=== PATIENT | female | born 1965 | race Caucasian/White ===

== ENCOUNTER 2020-07-01 16:09 | Emergency (ER) | payer OTHER, SELFPAY ==
--- NOTE | ~2020-07-01 | CT_ITS ---
EXAMINATION: CTA chest PE protocol DATE: 07/01/2020 19:44 INDICATION: Rest pain. Shortness of breath. TECHNIQUE: Computed tomography (CT) pulmonary angiogram of the chest was performed with 100 mL Omnipa que-350 intravenous contrast. Additional 3D reconstructions utilizing coronal maximum intensity proje ction (MIP) were performed. Automated exposure control and iterative reconstruction technique were em ployed. The dose-length product was 778.85 mGy-cm. COMPARISON: 08/05/11 FINDINGS: Excellent contrast opacification of the pulmonary arteries. There is mild streak artifact from dense contrast in the superior vena cava and right atrium. Mild scattered respiratory motion artifact which does not significantly limit evaluation. No pulmonary embolism. Calcified nodules in the left lung a long with calcified bilateral hilar and mediastinal lymph nodes consistent with old granulomatous dis ease. Unchanged 4 mm noncalcified granuloma in the right lower lobe. No pneumonia, pulmonary edema, p leural effusion or pneumothorax. Heart size is normal. No pericardial effusion. Thoracic aorta is nor mal in caliber with no dissection. Suggestion of possible esophageal wall thickening which could be s een with esophagitis. Calcified gallstone in the normal-appearing gallbladder. Visualized upper abdom en is otherwise unremarkable. Moderate thoracic spondylosis. Partially visualized anterior plate and screw fixation for lower cervical spinal fusion. Severe disc height loss at C7-T1 with 2 mm anterolis thesis C7 on T1. IMPRESSION: 1. No pulmonary embolism or other acute cardiopulmonary disease. 2. Suggestion of wall thickening in the mid to distal esophagus which could be seen with esophagitis. Reviewed, dictated and finalized at location A.
--- NOTE | ~2020-07-01 | XR_ITS ---
EXAMINATION: XR chest 2V DATE: 07/01/2020 19:18 INDICATION: Chest pain TECHNIQUE: frontal and lateral views of the chest were obtained. COMPARISON: Chest radiograph dated 12/19/2012 FINDINGS: A few calcified nodules in the left lung and calcified left hilar and mediastinal lymph nodes consist ent with old granulomatous disease. No other airspace opacities, pulmonary edema, pleural effusion or pneumothorax. The cardiomediastinal silhouette is normal. Instrumented anterior cervical spinal fusi on in the mid to lower cervical spine. A couple surgical clips along the right side of the lower cerv ical spine. Moderate thoracic spondylosis. IMPRESSION: 1. No acute cardiopulmonary disease. Reviewed, dictated and finalized at location A.
[2020-07-01 16:42] VITALS: BP 138/82; PULSE 85; RESP 20; TEMP 36.2; O2SAT 100
--- NOTE | 2020-07-01 16:46 | ECG_ITS ---
Measurements Intervals Gideon Rate: 82 P: 7 AR: 188 QRS: 0 QRSD: 82 T: 38 QT: 365 QTc: 428 Interpretive Statements SINUS RHYTHM BORDERLINE R WAVE PROGRESSION, ANTERIOR LEADS BASELINE WANDER- V4 BORDERLINE ECG Electronically Signed On 07-01-2020 19:25:24 CDT by Antonio Burnette D.O.
[2020-07-01 16:55] LABS: Basophils Percent Auto 0.5 % (0.2-1.2); Eosinophils Absolute Auto 0.5 K/mm3 (0-0.3); Eosinophils Percent Auto 8.3 % (0-4.4); Hematocrit 39.7 % (37.0-47.0); Hemoglobin 13.3 g/dL (12.0-15.0); Immature Granulocyte Absolute 0.01 K/mm3 (0.00-0.031); Immature Granulocyte Percent A 0.2 % (0-0.5); Lymphocytes Absolute Auto 1.95 K/mm3 (0.9-3.2); Lymphocytes Percent Auto 32.6 % (18.3-44.2); Mean Corpuscular HGB Conc 33.5 g/dl (32-36); Mean Corpuscular Hemoglobin 30.6 pg (26-34); Mean Corpuscular Volume 91.3 fl (80-100); Mean Platelet Volume 10.1 fl (7.4-10.4); Monocytes Absolute Auto 0.7 K/mm3 (0.1-0.6); Monocytes Percent Auto 11.4 % (2.6-8.5); Neutrophils Absolute Auto 2.8 K/mm3 (1.3-6.7); Platelet Count Result 312 k/mm3 (150-375); Red Blood Count 4.35 M/mm3 (4.2-5.4); Red Cell Distribution Width 11.9 % (11.5-14.5)
[2020-07-01 17:06] LABS: Anion Gap 7 mmol/L (8-16); Blood Urea Nitrogen 17 mg/dL (7-17); Carbon Dioxide 30 mmol/L (22-30); Chloride 106 mmol/L (98-107); Estimated CRCL calculation 57 ml/min; Estimated Glomerular Filt Rate 57; Glucose 92 mg/dL (65-105); Potassium 4.4 mmol/L (3.4-5.0); Sodium 143 mmol/L (137-145)
[2020-07-01 17:11] LABS: INR 0.9; Prothrombin Time 12.3 Seconds (11.1-14.7)
[2020-07-01 17:12] LABS: Partial Thromboplastin Time 28.9 SECONDS (22.3-36.8)
[2020-07-01 17:18] LABS: Troponin I < 0.012 ng/mL (0.000-0.034)
--- NOTE | 2020-07-01 19:00 | PC.NURSE ---
PT REPORT TO ZANE MATSON AT THIS TIME, SHE HAS ASSUMED PT CARE.
[2020-07-01 19:04] VITALS: PULSE 85
[2020-07-01 19:05] VITALS: BP 130/81; PULSE 87; RESP 22; O2SAT 97; O2SAT 98
[2020-07-01 19:10] VITALS: BP 130/81; PULSE 83; RESP 19; O2SAT 97
--- NOTE | 2020-07-01 19:30 | ED.CHESTPAIN ---
HPI - Chest Pain General Chief Complaint: Chest Pain Stated Complaint: chest pain Time Seen by Provider: 07/01/20 18:51 History of Present Illness HPI narrative: Patient is a 55-year-old female who presents ER with central chest pain. Ongoing for 2 weeks. Sharp and central but also feels like bricks sitting on her chest. It worsens with any type of movement and with direct palpation. She reports she did strike her chest a couple weeks ago but did not think much of it. She reports 1 week ago she was at [facility] and had a CT scan of her chest that was negative. However she reports that she went to her primary care physician today and he told her that the report showed she had a pulmonary embolism. He then referred her here for further treatment evaluation. Patient reports mild exertional shortness of breath. No fevers or chills or sweats. No productive cough. No hemoptysis. No previous PE/DVT. Related Data Allergies Allergy/AdvReac Type Severity Reaction Status Date / Time Sulfa (Sulfonamide Allergy Unknown Verified 02/23/16 16:54 Antibiotics) Review of Systems Review of Systems: All systems reviewed & are unremarkable except as noted in HPI and below Constitutional: Constitutional: Denies chills, Denies fever(s) and Denies weakness Cardiovascular: Cardiovascular: Reports chest pain, Denies rapid heart rate and Denies radiating jaw, neck or arm pain Respiratory: Respiratory: Denies cough, Reports dyspnea and Denies wheezing Gastrointestinal: Gastrointestinal: Denies abdominal pain, Denies diarrhea, Denies nausea and Denies vomiting PMFSH Past Medical History Medical History (Updated 07/01/20 @ 20:28 by Venu Carrion MD) Anxiety Depression Surgical History Surgical History (Updated 07/01/20 @ 19:32 by Venu Carrion MD) H/O neck surgery History of back surgery History of carpal tunnel surgery Family History Family History (Updated 05/30/14 @ 07:13 by DOCTOR UNKNOWN) Mother Carcinoma of colon Social History Social History (Updated 07/01/20 @ 19:33 by Venu Carrion MD) Smoking status: Never smoker Alcohol intake: never Substance use type: marijuana Exam Narrative: Exam Narrative: GENERAL: Well-appearing, well-nourished, and in no acute distress. HEAD: Normocephalic, atraumatic. CHEST: Clear to auscultation. No respiratory distress. Tender palpation anterior chest wall with light palpation. No bruising. HEART: Regular rate and rhythm. Normal peripheral pulses. ABDOMEN: Soft, nontender, nondistended. EXTREMITIES: Normal range of motion. No edema. SKIN: Warm, dry, no rash. NEURO: Alert and oriented x3. PSYCH: Normal mood and affect. Course Course Emergency Course: Pain improved with morphine. Informed results. Discharge home. Will give GI cocktail and discharged with PPI as well. Vital Signs Vital signs: Vital Signs Temperature 97.1 F L 07/01/20 16:42 Pulse Rate 85 07/01/20 16:42 Respiratory Rate 20 07/01/20 16:42 Blood Pressure 138/82 07/01/20 16:42 Pulse Oximetry 100 07/01/20 16:42 Temperature 97.1 F L 07/01/20 16:42 Pulse Rate 87 07/01/20 19:05 Respiratory Rate 22 H 07/01/20 19:05 Blood Pressure 130/81 07/01/20 19:05 Pulse Oximetry 98 07/01/20 19:05 MDM - Chest Pain Lab Data Result diagrams: 07/01/20 16:48 07/01/20 16:48 Labs: Lab Results 07/01/20 07/01/20 07/01/20 Range/Units 16:48 16:48 16:48 WBC 6.0 (4.5-10.0) K/mm3 RBC 4.35 (4.2-5.4) M/mm3 Hgb 13.3 (12.0-15.0) g/dL Hct 39.7 (37.0-47.0) % MCV 91.3 (80-100) fl MCH 30.6 (26-34) pg MCHC 33.5 (32-36) g/dl RDW 11.9 (11.5-14.5) % Plt Count 312 (150-375) k/mm3 MPV 10.1 (7.4-10.4) fl Immature Gran % (Auto) 0.2 (0-0.5) % Neut % (Auto) 47.0 (45.5-73.1) % Lymph % (Auto) 32.6 (18.3-44.2) % [place] % (Auto) 11.4 H (2.6-8.5) % Eos % (Auto) 8.3 H (0-4.4)
[2020-07-01] MEDS: ASPIRIN 81 MG CHEWABLE TABLET 324 MG PO (19:50)
[2020-07-01] MEDS: MORPHINE SULFATE (*CRX) 4 MG/ML INJ IV PUSH (19:50)
[2020-07-01 20:01] LABS: Troponin I < 0.012 ng/mL (0.000-0.034)
[2020-07-01] MEDS: BELLADONNA ALK/PHENOB ELIX 10 ML, MAG HYDROX/ALUMINUM HYD/SIMETH 30 ML, LIDOCAINE HCL 2... PO (20:30)
[2020-07-01 20:45] VITALS: BP 147/88; PULSE 76; RESP 17; O2SAT 98
== END 2020-07-01 20:45 | disposition home or self-care (01) ==
PROVIDERS: Emergency Medicine; Emergency Provider Emergency Medicine; PCP Emergency Medicine
DX: R07.89 Other chest pain (principal); K20.9 Esophagitis, unspecified; R94.31 Abnormal electrocardiogram [ECG] [EKG]
CPT/HCPCS: 36415; 71046; 71275; 80048; 84484; 85025; 85610; 85730; 93005; 96374; 99284; A9270; J2270; Q9967

== ENCOUNTER 2022-04-12 15:53 | Emergency (ER) | payer OTHER, SELFPAY ==
--- NOTE | ~2022-04-12 | XR_ITS ---
XR chest 1V portable DATE: 04/12/2022 16:52 INDICATION: Chest, heat exhaustion, dizziness TECHNIQUE: Portable AP chest COMPARISON: 07/01/2020 CT pulmonary scan 07/01/2020 AP and lateral chest FINDINGS: Left upper and lower lobe calcified pulmonary granulomas, calcified left hilar and aortopul monary window nodes, consistent with old granulomatous disease.. No pulmonary infiltrate or consolidation, pleural effusion or pulmonary vascular congestion or pneumo thorax. Normal heart size. No hilar or mediastinal enlargement. No pulmonary infiltrate or consolidation, pleural effusion or pulmonary vascular congestion or pneumo thorax. Degenerative spurring of the thoracic spine. Status post anterior cervical spine surgical fusion. Cli ps overlie the right cervical area. Osteopenia. IMPRESSION: Old pulmonary granulomatous disease No active cardiopulmonary disease Reviewed, dictated and finalized at location A.
[2022-04-12 15:55] VITALS: BP 149/90; PULSE 110; RESP 16; TEMP 36.9; O2SAT 98
--- NOTE | 2022-04-12 16:53 | PC.NURSE ---
pt refusing iv fluids. states im not sick like that .
[2022-04-12 16:58] LABS: Basophils Percent Auto 0.6 % (0.2-1.2); Eosinophils Absolute Auto 0.3 K/mm3 (0-0.3); Eosinophils Percent Auto 4.1 % (0-4.4); Hematocrit 42.7 % (37.0-47.0); Hemoglobin 14.2 g/dL (12.0-15.0); Immature Granulocyte Absolute 0.01 K/mm3 (0.00-0.031); Immature Granulocyte Percent A 0.1 % (0-0.5); Lymphocytes Percent Auto 24.1 % (18.3-44.2); Mean Corpuscular HGB Conc 33.3 g/dl (32-36); Mean Corpuscular Hemoglobin 29.4 pg (26-34); Mean Corpuscular Volume 88.4 fl (80-100); Mean Platelet Volume 10.4 fl (7.4-10.4); Monocytes Absolute Auto 0.6 K/mm3 (0.1-0.6); Monocytes Percent Auto 8.9 % (2.6-8.5); Neutrophils Absolute Auto 4.4 K/mm3 (1.3-6.7); Neutrophils Percent Auto 62.2 % (45.5-73.1); Platelet Count Result 309 k/mm3 (150-375); Red Blood Count 4.83 M/mm3 (4.2-5.4); Red Cell Distribution Width 12.7 % (11.5-14.5); White Blood Count 7.1 K/mm3 (4.5-10.0)
[2022-04-12 17:10] LABS: Creatine Kinase 184 U/L (30-135)
[2022-04-12 17:11] LABS: INR 1.1; Prothrombin Time 13.5 Seconds (11.1-14.7)
[2022-04-12 17:12] LABS: Partial Thromboplastin Time 30.3 SECONDS (22.3-36.8)
[2022-04-12 17:16] LABS: Alanine Aminotransferase 27 U/L (6-35); Albumin Level 4.4 g/dL (3.5-5.1); Alkaline Phosphatase 73 U/L (38-126); Anion Gap 8 mmol/L (8-16); Aspartate Amino Transferase 31 U/L (14-36); Bilirubin,Total 0.6 mg/dL (0.2-1.3); Blood Urea Nitrogen 14 mg/dL (7-17); Calcium 9.1 mg/dL (8.4-10.2); Carbon Dioxide 25 mmol/L (22-30); Chloride 108 mmol/L (98-107); Estimated CRCL calculation 65 ml/min; Estimated Glomerular Filt Rate > 60; Glucose 101 mg/dL (65-110); Lipase 56 U/L (23-300); Potassium 3.6 mmol/L (3.4-5.0); Sodium 141 mmol/L (137-145)
--- NOTE | 2022-04-12 17:16 | PC.NURSE ---
pt seen leaving room with family. taken to room and iv discontinued. pt left stating she needs to go see her grandson.
--- NOTE | 2022-04-12 17:24 | ED.DIZZY ---
HPI - Dizziness General Chief Complaint: Dizziness Stated Complaint: HEAT EXHAUSTION Time Seen by Provider: 04/12/22 16:11 Source: RN notes reviewed History of Present Illness HPI Narrative: Patient presents emergency department via EMS for dizziness. Patient states she had been pulled over by the police for traffic violation and had to had to get out of her car and was under arrest she states that she was sitting at the side of the road with handcuffs on and began to feel hot and overheated she states she was was on the side of the road for approximately 2 hours she states that she began to feel hot and dizzy and at that time had them call an ambulance bring her to the emergency department. She states she feels better at this time. Patient states she had felt dizzy but denies any chest pain shortness of breath abdominal pain nausea or vomiting she denies any numbness or tingling in the extremities. Patient states she is upset because it was her daughter's birthday and she just got her daughter's cake and is trying to figure out how to get the cake for her daughter's birthday Related Data Home Medications Medication Instructions Recorded Confirmed No Home Medications 04/12/22 04/12/22 Allergies Allergy/AdvReac Type Severity Reaction Status Date / Time Sulfa (Sulfonamide Allergy Unknown Unknown Verified 04/12/22 15:59 Antibiotics) Review of Systems Review of Systems: Gen.: Denies fevers or chills Eyes: Denies eye pain or visual change ENT: Denies congestion Respiratory: Denies shortness of breath or cough CV: Denies chest pain or palpitations GI: Denies abdominal pain nausea, emesis or diarrhea Musculoskeletal: Denies back pain or muscle pain Neuro: Reports dizziness Skin: Denies rash Except as documented, all other systems reviewed and negative [facility] [place] Past Medical History Medical History Anxiety Depression Surgical History Surgical History (Updated 07/01/20 @ 19:32 by Venu Carrion MD) H/O neck surgery History of back surgery History of carpal tunnel surgery Family History Family History (Updated 05/30/14 @ 07:13 by DOCTOR UNKNOWN) Mother Carcinoma of colon Social History Social History Smoking status: Never smoker Alcohol intake: never Substance use type: marijuana Exam Narrative: APPEARANCE: Resting in bed tearful and anxious nontoxic in appearance EYES: EOMI, PERRL HEENT: Normocephalic, atraumatic, OMM RESPIRATORY: No respiratory distress Clear to auscultation bilaterally with no rhonchi wheezing or rales. CARDIOVASCULAR: Regular rate and rhythm without murmurs rubs or gallops. ABDOMINAL: Soft, nontender, nondistended, no rebound or guarding MUSCULOSKELETAl: Moves all extremities. No clubbing, cyanosis or edema. NEURO: Awake and alert x 4. Following commands, speech normal, no focal deficits SKIN:: Warm, dry. No rashes lesions or abrasions PSYCHIATRIC: Denies suicidal homicidal ideation Course Course Emergency Course: After initial evaluation the patient eloped prior to completion of her treatment and evaluation Vital Signs Vital signs: Vital Signs Temperature 98.4 F 04/12/22 15:55 Pulse Rate 110 H 04/12/22 15:55 Respiratory Rate 16 04/12/22 15:55 Blood Pressure 149/90 H 04/12/22 15:55 Pulse Oximetry 98 04/12/22 15:55 Oxygen Delivery Room Air 04/12/22 15:55 Temperature 98.4 F 04/12/22 15:55 Pulse Rate 110 H 04/12/22 15:55 Respiratory Rate 16 04/12/22 15:55 Blood Pressure 149/90 H 04/12/22 15:55 Pulse Oximetry 98 04/12/22 15:55 Oxygen Delivery Room Air 04/12/22 15:55 MDM - Dizziness Lab Data Result diagrams: 04/12/22 16:49 04/12/22 16:50 Labs: Lab Results 04/12/22 04/12/22 04/12/22 Range/Units 16:49 16:49 16:50 WBC 7.1 (4.5-10.0) K/mm3 RBC 4.83 (4.2-5.4) M/mm3
[2022-04-12 17:27] LABS: Troponin I < 0.012 ng/mL (0.000-0.034)
== END 2022-04-12 17:17 | disposition left against medical advice (07) ==
LOC: ANHED 16:36
PROVIDERS: Emergency Provider Emergency Medicine; PCP Emergency Medicine
DX: R42 Dizziness and giddiness (principal)
CPT/HCPCS: 36415; 71045; 80053; 82550; 83690; 84484; 85025; 85610; 85730; 99284

== ENCOUNTER 2025-08-24 15:30 | Inpatient (IN) | payer OTHER, SELFPAY ==
--- NOTE | ~2025-08-24 | XR_ITS ---
Intraoperative images, fluoroscopy time 2 minutes 58 seconds Reviewed, dictated and finalized at location P. RDS CONSULTANT
--- NOTE | ~2025-08-24 | CT_ITS ---
EXAMINATION: CT hip LT wo con COMPARISON: None HISTORY: trauma TECHNIQUE: Axial images were obtained without IV contrast. Sagittal, coronal reconstruction images were obtained from the axial views. CT scan performed using dose optimization techniques including the following automated exposure control; adjustment of mA and/or kV; use of iterative reconstruction technique. Automatic exposure control was used to reduce radiation dose. Permanent radiation dose record is archived to PACS. FINDINGS: There are minimal degenerative changes noted of the acetabular femoral joint. There is a nondisplaced fracture of the proximal femoral neck. Soft tissue swelling noted with small joint effusion. No dislocation. IMPRESSION: Nondisplaced left femoral neck fracture Reviewed, dictated and finalized at location P. ENGINEER
--- NOTE | ~2025-08-24 | XR_ITS ---
EXAMINATION: XR hip LT 2V w AP pelvis, 08/24/2025 16:35 SENIOR BIOINFORMATICS SCIENTIST HISTORY: trauma, fall COMPARISON: No comparisons available. Findings: Nondisplaced fracture of the proximal left femoral neck is suspected. No significant degenerative changes. Soft tissues unremarkable. Impression: Probable left femoral neck fracture. CT recommended Reviewed, dictated and finalized at location P. OR BIOINFORMATICS SCIENTIST Impression: Probable left femoral neck fracture. CT recommended
[2025-08-24 15:37] VITALS: BP 116/62; PULSE 90; RESP 18; TEMP 36.6; O2SAT 100
[2025-08-24] MEDS: MORPHINE SULFATE (*CRX) 4 MG/ML INJ IV PUSH ×2 (15:53→21:00)
[2025-08-24 16:00] LABS: Hematocrit 43.0 % (37.0-47.0); Hemoglobin 14.0 g/dL (12.0-15.0); Immature Granulocyte Percent A 0.2 % (0-0.5); Lymphocytes Absolute Auto 1.41 K/mm3 (0.9-3.2); Mean Corpuscular HGB Conc 32.6 g/dl (32-36); Mean Corpuscular Hemoglobin 29.2 pg (26-34); Mean Corpuscular Volume 89.6 fl (80-100); Nucleated Red Blood Cells Absolute Auto 0.000 K/mm3 (0.0-0.012); Nucleated Red Blood Cells Perc 0.0 % (0.0-0.2); Platelet Count Result 266 k/mm3 (150-375); Red Blood Count 4.80 M/mm3 (4.2-5.4); White Blood Count 5.9 K/mm3 (4.5-10.0)
[2025-08-24 16:11] LABS: INR 0.9; Prothrombin Time 12.6 Seconds (11.1-14.7)
[2025-08-24 16:12] LABS: Partial Thromboplastin Time 29.0 Seconds (22.3-36.8)
[2025-08-24 16:23] LABS: Alanine Aminotransferase 19 U/L (6-35); Albumin Level 3.7 g/dL (3.5-5.1); Alkaline Phosphatase 84 U/L (38-126); Anion Gap 7 mmol/L (4-12); Aspartate Amino Transferase 25 U/L (14-36); Bilirubin,Total 0.5 mg/dL (0.2-1.3); Blood Urea Nitrogen 14 mg/dL (7-17); Calcium 8.7 mg/dL (8.4-10.2); Carbon Dioxide 25 mmol/L (22-30); Chloride 107 mmol/L (98-107); Estimated CRCL calculation 86 ml/min; Estimated Glomerular Filt Rate > 60; Glucose 114 mg/dL (65-110); Potassium 4.0 mmol/L (3.4-5.0); Sodium 139 mmol/L (137-145); Total Protein 6.6 g/dL (6.3-8.2)
--- NOTE | 2025-08-24 18:22 | ED_ITS ---
HPI - General Adult General Chief complaint: Fall Stated complaint: fall, left hip pain, back pain Time Seen by Provider: 08/24/25 15:35 History of Present Illness HPI narrative: Patient is a 60-year-old female who presents ER after tripping over a dog and hurting her hip. She felt a crunch. No numbness or tingling. She was unable stand back up. She crawled to her pickup truck where a neighbor helped her get into the truck. She then signed truck for several hours. She was using a trash can use the restroom. She had called the paramedics but did not want to go to [facility] so she declined their help and drove herself to our facility. No numbness or tingling to the leg. No loss of consciousness. Related Data Home Medications ?Medication ?Instructions ?Recorded ?Confirmed ?Last Taken ?Type No Home Medications 04/12/22 04/12/22 U nknown History Allergies Allergy/AdvReac Type Severity Reaction Status Date / Time Sulfa (Sulfonamide Allergy Unknown Unknown Verified 04/12/22 15:59 Antibiotics) Review of Systems 2 Review of Systems: All systems reviewed & are unremarkable except as noted in HPI and below Constitutional: Constitutional: Reports no additional constitutional complaints Gastrointestinal: Gastrointestinal: Reports no additional gastrointestinal complaints Genitourinary: Genitourinary: Reports no additional female genitourinary complaints Musculoskeletal: Musculoskeletal: Reports no additional musculoskeletal complaints Neurologic: Reports system reviewed and no additional complaints, except as documented PMFSH Past Medical History Medical History Anxiety Depression Surgical History Surgical History (Updated 07/01/20 @ 19:32 by Venu Carrion MD) History of back surgery H/O neck surgery History of carpal tunnel surgery Family History Family History (Updated 05/30/14 @ 07:13 by DOCTOR UNKNOWN) Mother Carcinoma of colon Social History Social History Smoking status: Never smoker Alcohol intake: never Substance use type: marijuana Exam 2 Narrative: GENERAL: Well-appearing, well-nourished, and in no acute distress. HEAD: Normocephalic, atraumatic. ENT: Mucous membranes moist. NECK: Supple. CHEST: Clear to auscultation. No respiratory distress. HEART: Regular rate and rhythm. Normal peripheral pulses. EXTREMITIES: Limited range of motion left lower extremity due to pain at the left hip. No shortening or external rotation. Neurovascular intact. SKIN: Warm, dry, no rash. NEURO: Alert and oriented x3. PSYCH: Normal mood and affect. Course Course Emergency Course: Dr. Carpio consulted. Admit to hospitalist service. Pt aware of dx and tx plan. Vital Signs Vital signs: Vital Signs Temperature 97.8 F 08/24/25 15:37 Pulse Rate 90 08/24/25 15:37 Respiratory Rate 18 08/24/25 15:37 Blood Pressure 116/62 08/24/25 15:37 Pulse Oximetry 100 08/24/25 15:37 Oxygen Delivery Room Air 08/24/25 15:37 Temperature 97.8 F 08/24/25 15:37 Pulse Rate 90 08/24/25 15:37 Respiratory Rate 18 08/24/25 15:37 Blood Pressure 116/62 08/24/25 15:37 Pulse Oximetry 100 08/24/25 15:37 Oxygen Delivery Room Air 08/24/25 15:37 Medical Decision Making Differential Diagnosis Differential Diagnosis: hip fracture, muyscle strain, contusion, pelvic fracture Vital Signs Vital Signs: Vital Signs Temperature 97.8 F 08/24/25 15:37 Pulse Rate 90 08/24/25 15:37 Respiratory Rate 18 08/24/25 15:37 Blood Pressure 116/62 08/24/25 15:37 Pulse Oximetry 100 08/24/25 15:37 Oxygen Delivery Room Air 08/24/25 15:37 Temperature 97.8 F 08/24/25 15:37 Pulse Rate 90 08/24/25 15:37 Respiratory Rate 18 08/24/25 15:37 Blood Pressure 116/62 08/24/25 15:37 Pulse Oximetry 100 08/24/25 15:37 Oxygen Delivery Room Air 08/24/25 15:37 Lab Data Lab results reviewed: Yes I reviewed the patient's lab results. 08/24/25 15:52 08/24/25 15:52 Labs: Lab Results 08/24/25 Range/Units 15:52 WBC 5.9 (4.5-10.0) K/mm3 RBC 4.80 (4.2-5.4) M/mm3 Hgb 14.0 (12.0-15.0) g/dL Hct 43.0 (37.0-47.0) % MCV 89.6 (80-100) fl MCH 29.2 (26-34) pg MCHC 32.6 (32-36) g/dl RDW 12.3 (11.5-14.5) % Plt Count 266 (150-375) k/mm3 MPV 9.5 (7.4-10.4) fl Immature Gran % (Auto) 0.2 (0-0.5) % Neut % (Auto) 57.1 (45.5-73.1) % Lymph % (Auto) 24.1 (18.3-44.2) % [place] % (Auto) 12.6 H (2.6-8.5) % Eos % (Auto) 5.3 H (0-4.4) % Baso % (Auto) 0.7 (0.2-1.2) % Lymph # (Auto) 1.41 (0.9-3.2) K/mm3 [place] # (Auto) 0.7 H (0.1-0.6) K/mm3 Eos # (Auto) 0.3 (0-0.3) K/mm3 Baso # (Auto) 0.0 (0.0-0.1) K/mm3 Abs Immat Gran (auto) 0.01 (0.00-0.031) K/mm3 Absolute Neuts (auto) 3.3 (1.3-6.7) K/mm3 Absolute Nucleated RBC 0.000 (0.0-0.012) K/mm3 Nucleated RBC % 0.0 (0.0-0.2) % PT 12.6 (11.1-14.7) Seconds INR 0.9 APTT 29.0 (22.3-36.8) Seconds Sodium 139 (137-145) mmol/L Potassium 4.0 (3.4-5.0) mmol/L Chloride 107 (98-107) mmol/L Carbon Dioxide 25 (22-30) mmol/L Anion Gap 7 (4-12) mmol/L BUN 14 (7-17) mg/dL Creatinine 0.58 L (0.7-1.0) mg/dL Estim Creat Clear Calc 86 ml/min Estimated GFR > 60 (59 - ) Glucose 114 H (65-110) mg/dL Calcium 8.7 (8.4-10.2) mg/dL Total Bilirubin 0.5 (0.2-1.3) mg/dL AST 25 (14-36) U/L ALT 19 (6-35) U/L Alkaline Phosphatase 84 (38-126) U/L Total Protein 6.6 (6.3-8.2) g/dL Albumin 3.7 (3.5-5.1) g/dL Imaging Data Radiologist's impression: ITS Impressions Hip/Pelvis X-Ray 08/24/25 16:54 Impression: Probable left femoral neck fracture. CT recommended Hip CT 08/24/25 18:08 IMPRESSION: Nondisplaced left femoral neck fracture Discharge Plan Discharge Clinical Impression: Femoral neck fracture Patient Disposition: Still a Patient Condition: Stable Patient Language: Macedonian Prescriptions: No Action No Home Medications Follow-up/Referrals: PHYSICIAN,CATERING ASSISTANT [Primary Care Provider, Internal Medicine]
[2025-08-24] MEDS: SODIUM CHLORIDE 0.9% IV 1,000 ML 125 ML IV CONT (19:19)
--- NOTE | 2025-08-24 19:20 | PC.NURSE ---
Patient found with heena saleh at bedside. RN told patient that she is currently NPO and cannot eat or drink at this time. Patient upset stating that she has not ate or drank all day. MD notified and MD stated she is NPO.
--- NOTE | 2025-08-24 19:40 | PC.NURSE ---
Family at bedside. Family brought in food from outside. RN told family that she cannot eat or drink. Family and patient upset.
--- NOTE | 2025-08-24 19:44 | WPCEDHO ---
ED Hand Off Checklist All vitals saved:yes IV Site documented:yes All med administrations documented:yes Triage Note Triage Note Pt to the ED following a fall. Pt 08/24/25 15:37 states she tripped over her dog this morning and wasn't able to get up. Pt states she called the ambulance but they would only take her to [place] and she didn't want to go there so she crawled to her truck and a neighbor helped her in and she drove herself. Pt is c/o L hip pain. pt has good pedal pulse in extremeity Allergies Sulfa (Sulfonamide Antibiotics) Allergy (Unknown, Verified 04/12/22 15:59) Unknown Family History Mother Carcinoma of colon Active Medications including assessments/comments Sodium Chloride (Normal Saline Iv) 1,000 mls @ 125 mls/hr IV CONT .Q8H ALYCE Last Admin: 08/24/25 19:19 Dose: 125 mls/hr Documented By: ALFREDO Infusion/Titration Document 08/24/25 19:19 ALFREDO (Rec: 08/24/25 19:20 ALFREDO [id number]) Intake IV Site Peripheral Access Left Wrist Container Volume 1,000 Waste Amount 0 Dosing Infusion Rate 125 Cumulative Dose Not Applicable Increase/Decrease Started Elapsed Time Elapsed Time ( 0m minutes) Administered/Completed Medications Discontinued Medications Morphine Sulfate (Morphine Sulfate (*Crx) 4 Mg/Ml Inj) 4 mg IV PUSH ONCE STA Stop: 08/24/25 15:45 Last Admin: 08/24/25 15:53 Dose: 4 mg Documented By: ALFREDO Notes 08/24/25 19:40 Nurse Note by Symone Smith Family at bedside. Family brought in food from outside. RN told family that she cannot eat or drink. Family and patient upset. Initialized on 08/24/25 19:40 - END OF NOTE 08/24/25 19:20 (created 08/24/25 19:39) Nurse Note by Symone Smith Patient found with heena saleh at bedside. RN told patient that she is currently NPO and cannot eat or drink at this time. Patient upset stating that she has not ate or drank all day. MD notified and MD stated she is NPO. Initialized on 08/24/25 19:39 - END OF NOTE Interventions/Assessments IV Line Assessment Start: 08/24/25 15:30 Freq: Status: Active Protocol: Document 08/24/25 15:55 [facility] (Rec: 08/24/25 15:55 AM[facility] [id number]) IV Assessment Peripheral Access Left Wrist IV Catheter Access Initiated IV Insertion Date 08/24/25 IV Insertion Time 15:55 Catheter Gauge 20 IV Site Assessment WNL IV Care and WNL Maintenance Last Vital Signs Temperature 97.8 F 08/24/25 15:37 Pulse Rate 90 08/24/25 15:37 Respiratory Rate 18 08/24/25 15:37 Pulse Oximetry 100 08/24/25 15:37 Blood Pressure 116/62 08/24/25 15:37 Blood Pressure Mean 80 08/24/25 15:37 Oxygen Delivery Room Air 08/24/25 15:37 Weight 81 kg 08/24/25 15:37 Last Result - Abnormals Only [place] % (Auto) 12.6 % (2.6-8.5) H 08/24/25 15:52 Eos % (Auto) 5.3 % (0-4.4) H 08/24/25 15:52 [place] # (Auto) 0.7 K/mm3 (0.1-0.6) H 08/24/25 15:52 Creatinine 0.58 mg/dL (0.7-1.0) L 08/24/25 15:52 Glucose 114 mg/dL (65-110) H 08/24/25 15:52 Most Recent Suicide Severity Rating Suicide Severity Rating NO RISK INDICATED 08/24/25 15:37
[2025-08-24 19:45] VITALS: BP 134/80; PULSE 82; RESP 16; O2SAT 99
--- NOTE | 2025-08-24 20:04 | PC.NURSE ---
RN gave ZANE Blanc report. RN stated room is not ready and she will call back when patient can head up.
--- NOTE | 2025-08-24 20:27 | P.HP_ITS ---
H&P: HPI History of Present Illness Date/Time: 08/24/25 20:27 Chief Complaint: Fall Narrative: 60 y/o F with PMH of back surgery, neck surgery, and carpal tunnel surgery presents here for further evaluation after a ground level fall. The patient presents here from home via personal vehicle on 08/24 for further evaluation of left hip pain following a ground level fall. She reports she tripped over her dog this morning and was unable to initially ambulate due to the pain in her left hip. She reports/denies loss of consciousness, neck pain, or head strike. She is not currently on anticoagulation. She denies associated numbness or tingling into her bilateral lower extremities. Initially contacted EMS, however they would not take her to [place] and would only take her to [facility]. She elected to forego EMS transport in order to go to the hospital of her choosing. She then crawled to her truck and had her neighbor helped her in. She was not able to immediately drive and was stuck in her truck for quite some time which forced her to urinate into a trash can. Then able to drive herself to the hospital. Patient additionally reports an abscess to her left axilla that developed approximately 1 week ago. She reports tenderness with to the touch. Denies history of hidradenitis suppurative. Denies fever, chills, body aches. Initial VS at presentation: 97.8? F, HR 90, R 18, 116/62, and 100% on RA. ED workup showed: No leukocytosis, no anemia, normal coags, no significant electrolyte derangements, creatinine 0.58 and GFR >60, glucose 114. CC hip/pelvic XR showed probable left femoral neck fracture. Hip CT showed nondisplaced left femoral neck fracture. Review of Systems Review of Systems: All systems reviewed & are unremarkable except as noted in HPI and below PMFSH Past Medical History Medical History Depression Anxiety Surgical History Surgical History History of back surgery H/O neck surgery History of carpal tunnel surgery Family History Family History Mother Carcinoma of colon Social History Social History Smoking status: Never smoker Alcohol intake: current Drinks per week: 1 Substance use: former Substance use type: marijuana Lack of Transportation: No Lack of Food: Sometimes True Current Housing: I Have Housing Concerned About Future Housing: No Difficulty Paying Gas/Electric Bills: No Difficulty Paying for Meds: No Currently Unemployed: No Education: High School Diploma/GED Difficulty w/ Childcare or Family Care: No Spiritual care concerns: No Meds Home Medications and Allergies Home Medications ?Medication ?Instructions ?Recorded ?Confirmed ?Type No Home Medications 04/12/22 08/24/25 H istory Allergies Allergy/AdvReac Type Severity Reaction Status Date / Time Sulfa (Sulfonamide Allergy Unknown Unknown Verified 08/24/25 21:20 Antibiotics) Vital Signs Vital Signs - 24 hr 08/24/25 15:37 08/24/25 19:45 Temperature 97.8 F Pulse Rate 90 82 Respiratory Rate 18 16 Blood Pressure 116/62 134/80 Pulse Oximetry 100 99 Oxygen Delivery Room Air Exam Const: General: comfortable and no acute distress Other: , female, nontoxic appearance HENMT: Face/Nose/Sinus: Normal nares present Mouth: Yes moist mucous membranes Eyes: General: appearance normal, both eyes and all related structures Sclera: sclerae normal Pupils: Equal, round and reactive pupils present EOM: EOMs intact bilaterally Resp: Effort & Inspection: normal respiratory effort Auscultation: clear to auscultation bilaterally Cardio: Rate: regular rate Rhythm: regular rhythm Other: S1-S2 present without murmur, rub, ectopy GI: Other: Abdomen soft, nondistended, nontender. Normoactive bowel sounds in all quadrants. Skin: General skin exam: normal color and no rashes or lesions noted Wounds: wounds noted Other: 1 cm abscess to the left axilla with grace roximately 1 cm of induration surrounding in all directions. Erythema. Tenderness. Neuro: Speech: normal speech Motor exam (neuro): 5/5 motor strength present throughout Sensory Exam: normal sensation Other: A&O x4 Extrem: General: normal to inspection Other: DP pulses 2+ bilaterally Psych: Mental Status: mental status grossly normal Affect: normal affect Other: Good insight and judgment, very pleasant H&P: Results Labs Labs: Short CBC 08/24/25 Range/Units 15:52 WBC 5.9 (4.5-10.0) K/mm3 Hgb 14.0 (12.0-15.0) g/dL Hct 43.0 (37.0-47.0) % Plt Count 266 (150-375) k/mm3 BMP 08/24/25 15:52 Sodium 139 Potassium 4.0 Chloride 107 Carbon Dioxide 25 BUN 14 Creatinine 0.58 L Glucose 114 H Calcium 8.7 Liver Function 08/24/25 Range/Units 15:52 Total Bilirubin 0.5 (0.2-1.3) mg/dL AST 25 (14-36) U/L ALT 19 (6-35) U/L Alkaline Phosphatase 84 (38-126) U/L Albumin 3.7 (3.5-5.1) g/dL Assessment and Plan Assessment and plan (1) Femoral neck fracture: Qualifiers: Encounter type: initial encounter Fracture type: closed Laterality: left Qualified Code(s): S72.002A - Fracture of unspecified part of neck of left femur, initial encounter for closed fracture Code(s): S72.009A - Fracture of unspecified part of neck of unspecified femur, initial encounter for closed fracture Status: Acute Assessment and Plan: Here for left hip pain following a ground level fall on 08/24. Unable to ambulate post fall. Hip/pelvic XR concerning for a left femoral neck fracture. CT of the hip obtained and it showed a nondisplaced left femoral neck fracture. No head strike or loss of consciousness. - bedrest - orthopedics consulted, anticipate surgical management. NPO midnight. - analgesics p.r.n. - stool softener p.r.n. and MiraLax p.r.n. - check UA preop (2) Abscess of axilla, left: Code(s): L02.412 - Cutaneous abscess of left axilla Status: Acute Assessment and Plan: Denies history of hydradenitis suppurative. Developed approximately 1 week ago. Denies systemic symptoms. - general surgery consulted for I&D - started on vancomycin on 08/24 - wound culture placed in case of spontaneous rupture or if I&D is able to take place at the bedside this evening Plan Diet: regular, NPO GI Prophylaxis: n/a DVT Prophylaxis: SCDs IV fluids: 125 mL/hr Lines/Tubes: peripheral IV Code Status: full code Quality VTE Prophylaxis VTE prophylaxis: mechanical ordered Hospitalist MIPS Advance Care Plan I have confirmed that the patient's Advanced Care Plan is present, code status is documented, or surrogate decision maker is listed in patient medical record.: Yes Medication Reconciliation I have utilized all available resources to obtain, update and review the patients current medications (includes all prescriptions, OTC, herbals, cannabis, and nutritional supplements).: Yes
--- NOTE | 2025-08-24 20:30 | PC.NURSE ---
RN called ZANE Blanc and she stated bed will be ready in 10 minutes. RN sent urine sample to lab.
[2025-08-24 21:13] VITALS: BMI 27.3
--- NOTE | 2025-08-24 21:20 | ADMGEN ---
This patient, Lucy Amaya, was admitted to Medical Room 347-. Patient/family oriented to hospital policies and general routines including ID bracelet, bed and alarms, visiting hours, pain management, procedures, bathroom and other care routines, personal items, smoking policy, room service/diet, and visiting hours. Information on how to activate the Rapid Response Team has been discussed. Patient/Family are encouraged to report perceived risks to care and to ask questions if they do not understand what they are told or what they should do.
[2025-08-24 22:00] VITALS: BP 125/74; PULSE 81; RESP 20; TEMP 36.9; O2SAT 98
[2025-08-25] VITALS (9 sets, daily range): BP systolic 125–175; BP diastolic 76–104; PULSE 71–102; RESP 12–18; TEMP 36.2–36.9; O2SAT 94–100
[2025-08-25] MEDS: SODIUM CHLORIDE 0.9% IV 1,000 ML 125 ML IV CONT ×2 (00:20→09:53)
[2025-08-25] MEDS: VANCOMYCIN 1,250 MG/NS 250 ML 1,250 MG/250 ML BAG 166.67 MG IVPB (00:21)
[2025-08-25 05:06] LABS: Add Urine Microscopic? YES; Appearance Urine Cloudy (Clear); Glucose Urine UA Negative (Negative); Leukocyte Esterase Ur Negative LEU/UL (Negative); Nitrate Urine Negative (Negative); Non Pathogenic Casts 0-2; Specific Grav Ur 1.018 (1.001-1.035)
[2025-08-25 05:20] LABS: Hematocrit 40.2 % (37.0-47.0); Hemoglobin 12.6 g/dL (12.0-15.0); Immature Granulocyte Percent A 0.4 % (0-0.5); Lymphocytes Absolute Auto 1.75 K/mm3 (0.9-3.2); Mean Corpuscular HGB Conc 31.3 g/dl (32-36); Mean Corpuscular Hemoglobin 29.1 pg (26-34); Mean Corpuscular Volume 92.8 fl (80-100); Nucleated Red Blood Cells Absolute Auto 0.000 K/mm3 (0.0-0.012); Nucleated Red Blood Cells Perc 0.0 % (0.0-0.2); Platelet Count Result 242 k/mm3 (150-375); Red Blood Count 4.33 M/mm3 (4.2-5.4); White Blood Count 5.5 K/mm3 (4.5-10.0)
[2025-08-25 05:35] LABS: Anion Gap 2 mmol/L (4-12); Blood Urea Nitrogen 13 mg/dL (7-17); Calcium 8.2 mg/dL (8.4-10.2); Carbon Dioxide 25 mmol/L (22-30); Chloride 111 mmol/L (98-107); Estimated CRCL calculation 62 ml/min; Estimated Glomerular Filt Rate > 60; Glucose 95 mg/dL (65-110); Potassium 4.2 mmol/L (3.4-5.0); Sodium 138 mmol/L (137-145)
--- NOTE | 2025-08-25 07:39 | P.PNIM_ITS ---
Progress Note: A&P Assessment and Plan (1) Femoral neck fracture: Qualifiers: Encounter type: initial encounter Fracture type: closed Laterality: left Qualified Code(s): S72.002A - Fracture of unspecified part of neck of left femur, initial encounter for closed fracture Code(s): S72.009A - Fracture of unspecified part of neck of unspecified femur, initial encounter for closed fracture Status: Acute Assessment and Plan: Here for left hip pain following a ground level fall on 08/24. Unable to ambulate post fall. Hip/pelvic XR concerning for a left femoral neck fracture. CT of the hip obtained and it showed a nondisplaced left femoral neck fracture. No head strike or loss of consciousness. * bedrest * analgesics p.r.n. * stool softener p.r.n. and MiraLax p.r.n. * UA not indicative of infection * orthopedics consulted, anticipate surgical management * NPO (2) Abscess of axilla, left: Code(s): L02.412 - Cutaneous abscess of left axilla Status: Acute Assessment and Plan: Denies history of hydradenitis suppurative. Developed approximately 1 week ago. Denies systemic symptoms. * general surgery consulted for I&D * started on vancomycin on 08/24 * wound culture placed in case of spontaneous rupture or if I&D is able to take place at the bedside this evening Plan Diet: regular, NPO GI Prophylaxis: n/a DVT Prophylaxis: SCDs IV fluids: 125 mL/hr Lines/Tubes: peripheral IV Code Status: full code Subjective Date/time seen: 08/25/25 07:39 Interval history: 60 y/o F with PMH of back surgery, neck surgery, and carpal tunnel surgery presents here for further evaluation after a ground level fall. 08/25/2025 Patient sitting comfortably in bed at time of exam. She's denying any chest pain, SOB, n/v, or abd pain right now, although is endorsing some L hip discomfort and has decreased ROM on exam. Ortho consult placed and pending. Gen surg consult also pending for abscess in L axilla. Blood work and vitals are stable. Pt complaining of wanting something to eat but otherwise is stable and has no complaints. Review of Systems Review of Systems: All systems reviewed & are unremarkable except as noted in HPI and below Exam Const: General: comfortable and no acute distress Other: , female, nontoxic appearance HENMT: Face/Nose/Sinus: Normal nares present Mouth: Yes moist mucous membranes Eyes: General: appearance normal, both eyes and all related structures Sclera: sclerae normal Pupils: Equal, round and reactive pupils present EOM: EOMs intact bilaterally Resp: Effort & Inspection: normal respiratory effort Auscultation: clear to auscultation bilaterally Cardio: Rate: regular rate Rhythm: regular rhythm Other: S1-S2 present without murmur, rub, ectopy GI: Other: Abdomen soft, nondistended, nontender. Normoactive bowel sounds in all quadrants. Skin: General skin exam: normal color, no rashes or lesions noted and wounds noted Wounds: wounds noted Other: 1 cm abscess to the left axilla with grace roximately 1 cm of induration surrounding in all directions. Erythema. Tenderness. Neuro: Cranial nerves: Yes Equal, round and reactive pupils present Speech: normal speech Motor exam (neuro): 5/5 motor strength present throughout Sensory Exam: normal sensation Other: A&O x4 Extrem: General: normal to inspection Other: DP pulses 2+ bilaterally Psych: Mental Status: mental status grossly normal Affect: normal affect Other: Good insight and judgment, very pleasant Objective Data Vital Signs Vital Signs: Vital Signs - 24 hr 08/24/25 15:37 08/24/25 19:45 08/24/25 22:00 Temperature 97.8 F 98.4 F Pulse Rate 90 82 81 Respiratory Rate 18 16 20 Blood Pressure 116/62 134/80 125/74 Pulse Oximetry 100 99 98 Oxygen Delivery Room Air 08/25/25 06:00 Temperature 98.4 F Pulse Rate 76 Respiratory Rate 16 Blood Pressure 125/81 Pulse Oximetry 99 Oxygen Delivery Intake/Output Intake/Output: Intake & Output 08/22/25 08/23/25 08/24/25 08/25/25 23:59 23:59 23:59 23:59 Intake Total 627.1 Balance 627.1 Meds/Results Medications: Active Medications Generic Name Dose Route Start Last Admin Trade Name Freq PRN Reason Stop Dose Admin Acetaminophen 650 mg 08/24/25 18:57 Acetaminophen 325 Mg Tablet PO Q4H PRN Mild Pain (1-3) or Fever Hydrocodone Bitart/Acetaminophen 1 tab 08/24/25 18:57 Hydrocodone/Acetaminophen (*Crx) 5-325 Mg Tablet PO Q4H PRN Pain Rated 4-6 Docusate Sodium 100 mg 08/24/25 20:33 Docusate Sodium 100 Mg Capsule PO Q12H PRN Constipation Sodium Chloride 1,000 mls @ 125 mls/hr 08/24/25 19:00 08/25/25 00:20 Normal Saline Iv IV CONT 125 mls/hr .Q8H ALYCE Administration Vancomycin HCl 1,250 mg in 250 mls @ 166.667 mls/hr 08/25/25 18:00 Vancomycin 1,250 Mg/Ns 250 Ml IVPB Q18H ALYCE Morphine Sulfate 4 mg 08/24/25 18:57 08/24/25 21:00 Morphine Sulfate (*Crx) 4 Mg/Ml Inj IV PUSH 4 mg Q2H PRN Administration Pain Rated 7-10 Ondansetron HCl 4 mg 08/24/25 18:57 Ondansetron Inj 4 Mg/2 Ml Vial IV PUSH Q4H PRN Nausea Polyethylene Glycol 17 gm 08/24/25 20:33 Polyethylene Glycol 3350 17 Gm Powd.Pack PO QAM PRN Constipation Radiology Results: ITS Impressions Hip/Pelvis X-Ray 08/24/25 16:54 Impression: Probable left femoral neck fracture. CT recommended Hip CT 08/24/25 18:08 IMPRESSION: Nondisplaced left femoral neck fracture Labs Labs: Laboratory Results - last 24 hr 08/24/25 08/25/25 08/25/25 15:52 04:54 05:06 WBC 5.9 5.5 RBC 4.80 4.33 Hgb 14.0 12.6 Hct 43.0 40.2 MCV 89.6 92.8 MCH 29.2 29.1 MCHC 32.6 31.3 L RDW 12.3 12.3 Plt Count 266 242 MPV 9.5 9.6 Immature Gran % (Auto) 0.2 0.4 Neut % (Auto) 57.1 46.6 Lymph % (Auto) 24.1 31.6 [place] % (Auto) 12.6 H 13.5 H Eos % (Auto) 5.3 H 7.4 H Baso % (Auto) 0.7 0.5 Lymph # (Auto) 1.41 1.75 [place] # (Auto) 0.7 H 0.8 H Eos # (Auto) 0.3 0.4 H Baso # (Auto) 0.0 0.0 Abs Immat Gran (auto) 0.01 0.02 Absolute Neuts (auto) 3.3 2.6 Absolute Nucleated RBC 0.000 0.000 Nucleated RBC % 0.0 0.0 PT 12.6 INR 0.9 APTT 29.0 Sodium 139 138 Potassium 4.0 4.2 Chloride 107 111 H Carbon Dioxide 25 25 Anion Gap 7 2 L BUN 14 13 Creatinine 0.58 L 0.77 Estim Creat Clear Calc 86 62 Estimated GFR > 60 > 60 Glucose 114 H 95 Calcium 8.7 8.2 L Total Bilirubin 0.5 AST 25 ALT 19 Alkaline Phosphatase 84 Total Protein 6.6 Albumin 3.7 Urine Color Yellow Urine Appearance Cloudy H Urine pH 5.5 Ur Specific [place] 1.018 Urine Protein Negative Urine Glucose (UA) Negative Urine Ketones Negative Ur Blood (Man) Negative Urine Nitrate Negative Urine Bilirubin Negative Urine Urobilinogen 0.2 Leukocyte Esterase Rfl Negative Urine RBC 0-2 Urine WBC 0-5 Ur Squamous Epith Cells None seen Urine Bacteria None seen Urine Casts 0-2 Quality VTE Prophylaxis VTE prophylaxis: mechanical ordered
[2025-08-25] MEDS: MORPHINE SULFATE (*CRX) 4 MG/ML INJ IV PUSH (09:53)
[2025-08-25 10:57] LABS: Cannabinoid Screen Urine Negative (Negative)
--- NOTE | 2025-08-25 12:53 | P.CONS_ITS ---
Assessment and Plan Assessment and plan (1) Abscess of axilla, left: Code(s): L02.412 - Cutaneous abscess of left axilla Status: Acute Assessment and Plan: Patient is a small 3x2cm area infection with a central area of abscess in the left axilla. Nothing is blunting of the draining right now but there is some fluctuance. Although the patient could likely have this incised and drained at the bedside, since she is going to the operating room later this afternoon for a left hip pinning by Orthopedics I will just plan on going down to the operating room and incising and draining the abscess in the operating room while she is under anesthetic. This was discussed with her and with orthopedics and they were okay with the plan. HPI Data of Consult Date/Time: 08/25/25 12:53 Requesting Physician: Juan Momin MD Primary Care Provider: TRIM DIE MAKER PHYSICIAN Consult Narrative Reason for consult: Left axillary abscess Narrative: Lucy Amaya is a 60 year old female admitted to [facility] for left femoral neck fracture. This occurred yesterday. Has been seen by Ortho and a hip pinning is planned for today. She also complained of having in redness and swelling the left axilla. She stated she had not had infections area in the past. She has no prior history of hidradenitis. The area infection has been present for a couple of days. No fever. Nothing drainage from the area presently. Review of Systems 2 Review of Systems: The remainder of the review of systems to include constitutional, HEENT, cardiovascular, respiratory, GI, , integumentary, musculoskeletal, endocrine, immunologic, hematologic, psychiatric, and neurologic are all negative except for which is mentioned above in the HPI. [facility] Past Medical History Medical History Depression Anxiety Surgical History Surgical History History of back surgery H/O neck surgery History of carpal tunnel surgery Family History Family History Mother Carcinoma of colon Social History Social History Smoking status: Never smoker Alcohol intake: current Drinks per week: 1 Substance use: former Substance use type: marijuana Lack of Transportation: No Lack of Food: Sometimes True Current Housing: I Have Housing Concerned About Future Housing: No Difficulty Paying Gas/Electric Bills: No Difficulty Paying for Meds: No Currently Unemployed: No Education: High School Diploma/GED Difficulty w/ Childcare or Family Care: No Spiritual care concerns: No Meds Home Medications and Allergies Home Medications ?Medication ?Instructions ?Recorded ?Confirmed ?Type No Home Medications 04/12/22 08/24/25 H istory Allergies Allergy/AdvReac Type Severity Reaction Status Date / Time Sulfa (Sulfonamide Allergy Unknown Unknown Verified 08/24/25 21:20 Antibiotics) Vital Signs Vital Signs - 24 hr 08/24/25 15:37 08/24/25 19:45 08/24/25 22:00 Temperature 36.6 C 36.9 C Pulse Rate 90 82 81 Respiratory Rate 18 16 20 Blood Pressure 116/62 134/80 125/74 Pulse Oximetry 100 99 98 Oxygen Delivery Room Air 08/25/25 06:00 08/25/25 08:00 Temperature 36.9 C Pulse Rate 76 Respiratory Rate 16 Blood Pressure 125/81 Pulse Oximetry 99 Oxygen Delivery Room Air Exam 2 Const: General: comfortable and no acute distress HENMT: Ears: TM's normal bilaterally Face/Nose/Sinus: Normal nares present Mouth: Yes moist mucous membranes Eyes: General: appearance normal, both eyes and all related structures S clera: sclerae normal Pupils: Equal, round and reactive pupils present E OM: EOMs intact bilaterally Neck: Neck: supple and no JVD Resp: Effort & Inspection: normal respiratory effort Auscultation: clear to auscultation bilaterally Cardio: Rate: regular rate Rhythm: regular rhythm GI: GI Palp: Yes Soft to palpation, No Firmness to palpation present (GI), No Tenderness to palpation present (GI), No Guarding due to palpation present (GI) and No Hernia present Skin: Lesions: lesion noted (3x2cm area of induration and redness with a central area of 1.5cm of absces) left axilla Neuro: Speech: normal speech Sensory Exam: normal sensation Extrem: Other: Left hip tenderness due to femoral head fracture Psych: Mental Status: mental status grossly normal Affect: normal affect Results Labs 08/25/25 05:06 08/25/25 05:06 Labs: Short CBC 08/24/25 08/25/25 Range/Units 15:52 05:06 WBC 5.9 5.5 (4.5-10.0) K/mm3 Hgb 14.0 12.6 (12.0-15.0) g/dL Hct 43.0 40.2 (37.0-47.0) % Plt Count 266 242 (150-375) k/mm3 BMP 08/24/25 08/25/25 15:52 05:06 Sodium 139 138 Potassium 4.0 4.2 Chloride 107 111 H Carbon Dioxide 25 25 BUN 14 13 Creatinine 0.58 L 0.77 Glucose 114 H 95 Calcium 8.7 8.2 L Liver Function 08/24/25 Range/Units 15:52 Total Bilirubin 0.5 (0.2-1.3) mg/dL AST 25 (14-36) U/L ALT 19 (6-35) U/L Alkaline Phosphatase 84 (38-126) U/L Albumin 3.7 (3.5-5.1) g/dL Urine 08/25/25 Range/Units 04:54 Urine Color Yellow (Yellow) Urine Appearance Cloudy H (Clear) Urine pH 5.5 (5.0-9.0) Ur Specific [place] 1.018 (1.001-1.035) Urine Protein Negative (Negative) mg/dL Urine Glucose (UA) Negative (Negative) mg/dL
--- NOTE | 2025-08-25 15:34 | WPDANESEPPF ---
Anes - Initial Pre Proc Eval Procedure: Operation Date: 08/25/25 12:00 Proposed Procedures p Hip Pinning Cannulated Screws - Vini Carpio MD Date/Time: 08/25/25 15:34 Surgeon: Juan Momin MD Pre Op Diagnosis: Hip fracture Patient Data Age: 60 Gender: F Height: 1.6 m Weight: 70.1 kg Last Vital Signs Temp 36.7 C 08/25/25 14:00 Pulse 75 08/25/25 14:00 Resp 16 08/25/25 14:00 BP 152/98 H 08/25/25 14:00 Pulse Ox 99 08/25/25 14:00 O2 Del Method Room Air 08/25/25 08:00 Allergies Allergy/AdvReac Type Severity Reaction Status Date / Time Sulfa (Sulfonamide Allergy Unknown Unknown Verified 08/24/25 21:20 Antibiotics) Home Medications ?Medication ?Instructions ?Recorded ?Confirmed ?Type No Home Medications 04/12/22 08/24/25 History Laboratory Tests 08/24/25 08/25/25 08/25/25 15:52 04:54 05:06 WBC 5.9 K/mm3 5.5 K/mm3 (4.5-10.0) (4.5-10.0) RBC 4.80 M/mm3 4.33 M/mm3 (4.2-5.4) (4.2-5.4) Hgb 14.0 g/dL 12.6 g/dL (12.0-15.0) (12.0-15.0) Hct 43.0 % 40.2 % (37.0-47.0) (37.0-47.0) MCV 89.6 fl 92.8 fl (80-100) (80-100) MCH 29.2 pg 29.1 pg (26-34) (26-34) MCHC 32.6 g/dl 31.3 L g/dl (32-36) (32-36) RDW 12.3 % 12.3 % (11.5-14.5) (11.5-14.5) Plt Count 266 k/mm3 242 k/mm3 (150-375) (150-375) MPV 9.5 fl 9.6 fl (7.4-10.4) (7.4-10.4) Immature Gran % (Auto) 0.2 % 0.4 % (0-0.5) (0-0.5) Neut % (Auto) 57.1 % 46.6 % (45.5-73.1) (45.5-73.1) Lymph % (Auto) 24.1 % 31.6 % (18.3-44.2) (18.3-44.2) [place] % (Auto) 12.6 H % 13.5 H % (2.6-8.5) (2.6-8.5) Eos % (Auto) 5.3 H % 7.4 H % (0-4.4) (0-4.4) Baso % (Auto) 0.7 % 0.5 % (0.2-1.2) (0.2-1.2) Lymph # (Auto) 1.41 K/mm3 1.75 K/mm3 (0.9-3.2) (0.9-3.2) [place] # (Auto) 0.7 H K/mm3 0.8 H K/mm3 (0.1-0.6) (0.1-0.6) Eos # (Auto) 0.3 K/mm3 0.4 H K/mm3 (0-0.3) (0-0.3) Baso # (Auto) 0.0 K/mm3 0.0 K/mm3 (0.0-0.1) (0.0-0.1) Abs Immat Gran (auto) 0.01 K/mm3 0.02 K/mm3 (0.00-0.031) (0.00-0.031) Absolute Neuts (auto) 3.3 K/mm3 2.6 K/mm3 (1.3-6.7) (1.3-6.7) Absolute Nucleated RBC 0.000 K/mm3 0.000 K/mm3 (0.0-0.012) (0.0-0.012) Nucleated RBC % 0.0 % 0.0 % (0.0-0.2) (0.0-0.2) PT 12.6 Seconds (11.1-14.7) INR 0.9 APTT 29.0 Seconds (22.3-36.8) Sodium 139 mmol/L 138 mmol/L (137-145) (137-145) Potassium 4.0 mmol/L 4.2 mmol/L (3.4-5.0) (3.4-5.0) Chloride 107 mmol/L 111 H mmol/L (98-107) (98-107) Carbon Dioxide 25 mmol/L 25 mmol/L (22-30) (22-30) Anion Gap 7 mmol/L 2 L mmol/L (4-12) (4-12) BUN 14 mg/dL 13 mg/dL (7-17) (7-17) Creatinine 0.58 L mg/dL 0.77 mg/dL (0.7-1.0) (0.7-1.0) Estim Creat Clear Calc 86 ml/min 62 ml/min Estimated GFR > 60 > 60 (59 - ) (59 - ) Glucose 114 H mg/dL 95 mg/dL (65-110) (65-110) Calcium 8.7 mg/dL 8.2 L mg/dL (8.4-10.2) (8.4-10.2) Total Bilirubin 0.5 mg/dL (0.2-1.3) AST 25 U/L (14-36) ALT 19 U/L (6-35) Alkaline Phosphatase 84 U/L (38-126) Total Protein 6.6 g/dL (6.3-8.2) Albumin 3.7 g/dL (3.5-5.1) Urine Color Yellow (Yellow) Urine Appearance Cloudy H (Clear) Urine pH 5.5 (5.0-9.0) Ur Specific [place] 1.018 (1.001-1.035) Urine Protein Negative mg/dL (Negative) Urine Glucose (UA) Negative mg/dL (Negative) Urine Ketones Negative mg/dL (Negative) Ur Blood (Man) Negative (Negative) Urine Nitrate Negative (Negative) Urine Bilirubin Negative (Negative) Urine Urobilinogen 0.2 mg/dL (<2.0) Leukocyte Esterase Rfl Negative GATO/UL (Negative) Urine RBC 0-2 /hpf (0-2) Urine WBC 0-5 /hpf (0-3) Ur Squamous Epith Cells None seen /hpf (Few) Urine Bacteria None seen /hpf Urine Casts 0-2 Urine Opiates Screen Urine Methadone Screen Ur Barbiturates Screen Ur Phencyclidine Scrn Ur Amphetamine Screen U Benzodiazepines Scrn Urine Cocaine Screen U Cannabinoids Screen 08/25/25 10:31 WBC RBC Hgb Hct MCV MCH MCHC RDW Plt Count MPV Immature Gran % (Auto) Neut % (Auto) Lymph % (Auto) [place] % (Auto) Eos % (Auto) Baso % (Auto) Lymph # (Auto) [place] # (Auto) Eos # (Auto) Baso # (Auto) Abs Immat Gran (auto) Absolute Neuts (auto) Absolute Nucleated RBC Nucleated RBC % PT INR APTT Sodium Potassium Chloride Carbon Dioxide Anion Gap BUN Creatinine Estim Creat Clear Calc Estimated GFR Glucose Calcium Total Bilirubin AST ALT Alkaline Phosphatase Total Protein Albumin Urine Color Urine Appearance Urine pH Ur Specific Shiner Urine Protein Urine Glucose (UA) Urine Ketones Ur Blood (Man) Urine Nitrate Urine Bilirubin Urine Urobilinogen Leukocyte Esterase Rfl Urine RBC Urine WBC Ur Squamous Epith Cells Urine Bacteria Urine Casts Urine Opiates Screen Positive A (Negative) Urine Methadone Screen Negative (Negative) Ur Barbiturates Screen Negative (Negative) Ur Phencyclidine Scrn Negative (Negative) Ur Amphetamine Screen Negative (Negative) U Benzodiazepines Scrn Negative (Negative) Urine Cocaine Screen Positive A (Negative) U Cannabinoids Screen Negative (Negative) Patient hx anesthesia problems: none Family hx anesthesia problems: none Results Review: All pre-operative results and documents have been reviewed as part of the pre-operative evaluation. [facility] Past Medical History Medical History (Updated 08/25/25 @ 15:35 by [place] Praj[place]ati MD) Overweight Depression Anxiety Surgical History Surgical History History of back surgery H/O neck surgery History of carpal tunnel surgery Family History Family History Mother Carcinoma of colon Social History Social History Smoking status: Never smoker Alcohol intake: current Drinks per week: 1 Substance use: former Substance use type: marijuana Lack of Transportation: No Lack of Food: Sometimes True Current Housing: I Have Housing Concerned About Future Housing: No Difficulty Paying Gas/Electric Bills: No Difficulty Paying for Meds: No Currently Unemployed: No Education: High School Diploma/GED Difficulty w/ Childcare or Family Care: No Spiritual care concerns: No Anes - Eval Final PreProcedure Day of Procedure 08/25/25 15:34 Patient weight: overweight Heart: regular rate and rhythm Lungs: clear to auscultation Airway: Mallampati scale class II and special considerations poor extension Neurological: alert and oriented Last oral intake: >/= 8 hours ASA classification: III Emergent: no Anesthetic plan: proceed Anesthesia type and monitoring: general LMA and standard monitoring Results Review: All pre-operative results and documents have been reviewed as part of the pre-operative evaluation. Informed Consent: The patient's anesthetic plan and its attendant risks and benefits were discussed with the patient/family/POA. Questions were solicited and answers provided to the satisfaction of the patient/family/POA.
--- NOTE | 2025-08-25 15:37 | P.CONOP_ITS ---
Assessment and Plan Assessment and plan (1) Femoral neck fracture: Qualifiers: Encounter type: initial encounter Fracture type: closed Laterality: l eft Qualified Code(s): S72.002A - Fracture of unspecified part of neck of left femur, initial encounter for closed fracture Code(s): S72.009A - Fracture of unspecified part of neck of unspecified femur, initial encounter for closed fracture Status: Acute Assessment and Plan: ELIDA IS HERE FO HER LEFT HIP INJURY. SHE TRIPPED WHILE PLAYING WITH HER DOGS AND INJURED HER LEFT HIP. SHE WAS SEEN IN THE ED AND DIAGNOSED WITH A DISPLACED LEFT FEMORAL NECK FRACTURE. SHE DENIES ANY OTHER INJURY. SHE DENIES ANY BACK NECK OR UPPER EXTREMITY OR LOWER EXTREMITY PAIN. HISTORY, EXAM AND RADIOGRAPHS REVIEWED WITH THE PATIENT. REFERRING PHYSICIAN RECORDS AND IMAGES REVIEWED. CONDITION, NATURE, ETIOLOGY AND COURSE OF NATURAL HISTORY REVIEWED. CONSERVATIVE AND OPERATIVE TREATMENT OPTIONS REVIEWED WELL THE RISKS AND BENEFITS OF EACH. XRAYS SHOW LEFT FEMORAL NECK FRACTURE WITH MINIMAL DISPLACEMENT AND SLIGHT VALGUS DEFORMITY. RECOMMEND LEFT HIP PERCUTANEOUS SCREW FIXATION. DISCUSSED NONOPERATIVE AND OPERATIVE TREATMENT OPTIONS WITH THE PATIENT. THE PATIENT'S QUESTIONS WERE ANSWERED. THE PATIENT DESIRES OPERATIVE TREATMENT. DISCUSSED ___PERCUTANEOUS SCREW FIXATION LEFT FEMORAL NECK FRACTURE . RISKS OF SURGERY INCLUDING BUT NOT LIMITED TO NEUROVASCULAR DAMAGE, WOUND COMPLICATIONS, BLOOD CLOT, PULMONARY EMBOLUS, STROKE, RI, ANESTHETIC RISKS UP TO AND INCLUDING WERE REVIEWED. CONTINUED PAIN AND POSSIBLE DYSFUNCTION WERE EXPLAINED. NO GUARANTEES WERE OFFERED. THE PATIENT UNDERSTANDS AND WISHES TO PROCEED. History of Present Illness HPI Consult date: 08/25/25 Chief complaint: Hip fracture Narrative: ELDIA IS HERE FO HER LEFT HIP INJURY. SHE TRIPPED WHILE PLAYING WITH HER DOGS AND INJURED HER LEFT HIP. SHE WAS SEEN IN THE ED AND DIAGNOSED WITH A DISPLACED LEFT FEMORAL NECK FRACTURE. SHE DENIES ANY OTHER INJURY. SHE DENIES ANY BACK NECK OR UPPER EXTREMITY OR LOWER EXTREMITY PAIN. HISTORY, EXAM AND RADIOGRAPHS REVIEWED WITH THE PATIENT. REFERRING PHYSICIAN RECORDS AND IMAGES REVIEWED. CONDITION, NATURE, ETIOLOGY AND COURSE OF NATURAL HISTORY REVIEWED. CONSERVATIVE AND OPERATIVE TREATMENT OPTIONS REVIEWED WELL THE RISKS AND BENEFITS OF EACH. Review of Systems 2 Review of Systems: All systems reviewed & are unremarkable except as noted in HPI and below PMFSH Past Medical History Medical History Overweight Depression Anxiety Surgical History Surgical History History of back surgery H/O neck surgery History of carpal tunnel surgery Family History Family History Mother Carcinoma of colon Social History Social History Smoking status: Never smoker Alcohol intake: current Drinks per week: 1 Substance use: former Substance use type: marijuana Lack of Transportation: No Lack of Food: Sometimes True Current Housing: I Have Housing Concerned About Future Housing: No Difficulty Paying Gas/Electric Bills: No Difficulty Paying for Meds: No Currently Unemployed: No Education: High School Diploma/GED Difficulty w/ Childcare or Family Care: No Spiritual care concerns: No Meds Home Medications and Allergies Home Medications ?Medication ?Instructions ?Recorded ?Confirmed ?Type No Home Medications 04/12/22 08/24/25 H istory Allergies Allergy/AdvReac Type Severity Reaction Status Date / Time Sulfa (Sulfonamide Allergy Unknown Unknown Verified 08/24/25 21:20 Antibiotics) Vital Signs Vital Signs - 24 hr 08/24/25 19:45 08/24/25 22:00 08/25/25 06:00 Temperature 36.9 C 36.9 C Pulse Rate 82 81 76 Respiratory Rate 16 20 16 Blood Pressure 134/80 125/74 125/81 Pulse Oximetry 99 98 99 Oxygen Delivery 08/25/25 08:00 08/25/25 14:00 Temperature 36.7 C Pulse Rate 75 Respiratory Rate 16 Blood Pressure 152/98 H Pulse Oximetry 99 Oxygen Delivery Room Air Exam 2 Back/Spine/Pelvis: Back: No CVA tenderness, No ecchymosis and No back tenderness Cervical Spine: normal cervical lordosis, cervical ROM normal, No cervical muscular tenderness, No pain with cervical ROM and No Cervical spine tenderness Extrem: Right lower extremity: hip/thigh Details: normal to inspection and normal ROM; no tenderness and no swelling, knee Details: normal to inspection, normal ROM and knee ligament exam normal; no tenderness and no swelling and lower leg Details: normal to inspection, palpable cord and no edema; no erythema, no tenderness, no localized swelling and no ecchymosis Left lower extremity: hip/thigh Details: abnormal to inspection, tenderness, swelling, abnormal ROM Details: pain with active ROM Details: with ADduction, with ABduction, with extension, with flexion, with internal rotation and with external rotation and pain with passive ROM Details: with ADduction, with ABduction, with extension, with flexion, with internal rotation and with external rotation, ecchymosis, crepitus and warmth; no abrasions, no lacerations and no penetrating wound, knee Details: normal to inspection and swelling; no tenderness, lower leg Details: normal to inspection, palpable cord and no edema; no tenderness, ankle Details: normal to inspection and normal ROM; no tenderness, no swelling and no pitting edema and foot Details: normal capillary refill, normal to inspection, toes with normal ROM, vascular exam Details: dorsalis pedis pulse present and posterior tibial pulse present and motor- sensory exam light-touch normal; no abrasions, no lacerations and no ecchymosis Results Labs 08/25/25 05:06 08/25/25 05:06 Labs: Abnormal lab results 08/24/25 08/25/25 08/25/25 Range/Units 15:52 04:54 05:06 MCHC 31.3 L (32-36) g/dl [place] % (Auto) 12.6 H 13.5 H (2.6-8.5) % Eos % (Auto) 5.3 H 7.4 H (0-4.4) % [place] # (Auto) 0.7 H 0.8 H (0.1-0.6) K/mm3 Eos # (Auto) 0.4 H (0-0.3) K/mm3 Chloride 111 H (98-107) mmol/L Anion Gap 2 L (4-12) mmol/L Creatinine 0.58 L (0.7-1.0) mg/dL Glucose 114 H (65-110) mg/dL Calcium 8.2 L (8.4-10.2) mg/dL Urine Appearance Cloudy H (Clear) Urine Opiates Screen (Negative) Urine Cocaine Screen (Negative) 08/25/25 Range/Units 10:31 MCHC (32-36) g/dl [place] % (Auto) (2.6-8.5) % Eos % (Auto) (0-4.4) % [place] # (Auto) (0.1-0.6) K/mm3 Eos # (Auto) (0-0.3) K/mm3 Chloride (98-107) mmol/L Anion Gap (4-12) mmol/L Creatinine (0.7-1.0) mg/dL Glucose (65-110) mg/dL Calcium (8.4-10.2) mg/dL Urine Appearance (Clear) Urine Opiates Screen Positive A (Negative) Urine Cocaine Screen Positive A (Negative) H & H 08/24/25 08/25/25 Range/Units 15:52 05:06 Hgb 14.0 12.6 (12.0-15.0) g/dL Hct 43.0 40.2 (37.0-47.0) % Coagulation 08/24/25 Range/Units 15:52 INR 0.9 All other labs normal.
--- NOTE | 2025-08-25 15:51 | WPDHPUPDATE1 ---
History and Physical Update Update Date/Time: 08/25/25 15:51 History and Physical has been reviewed, including an updated exam of the patient. There are NO changes in the patient's condition. Risks, benefits, and alternatives have been discussed and questions answered. Patient agrees to proceed with procedure.
--- NOTE | 2025-08-25 16:02 | WPDHPUPDATE1 ---
History and Physical Update Update Date/Time: 08/25/25 16:02 History and Physical has been reviewed, including an updated exam of the patient. There are NO changes in the patient's condition. Risks, benefits, and alternatives have been discussed and questions answered. Patient agrees to proceed with procedure.
--- NOTE | 2025-08-25 16:17 | W.PM.PROC2 ---
Procedure Note - Detailed Date of Procedure 08/25/25 Pre-op Diagnosis Left axillary abscess Post-op Diagnosis Same Procedure Performed Simple incision and drainage of superficial left axillary abscess. Surgeon Allen Vann MD Anesthesia General Indications Patient is a 60-year-old female who was admitted to [facility] with a left femoral neck fracture. She was managed primarily by the orthopedic surgery service. However she complained of having redness pain and swelling in the left axillary region and was found to have 3x2cm superficial left axillary abscess. She is taken to the operating this afternoon for left hip pinning and at the same anesthesia I will perform incision and drainage of left axillary abscess. Findings Patient 3x2cm left axillary abscess in the superficial tissues of the left axilla. There was a 1.5cm fluctuance in the midportion of the induration. After lancing the abscess small amount of pus drained and a culture stick was obtained and sent to microbiology for Gram stain and aerobic and anaerobic cultures. Description of Procedure After informed consent was obtained patient brought to the operating room she was placed supine position and general endotracheal anesthesia was administered. The left axillary region was then prepped and draped usual sterile fashion. A time-out was then performed correctly identifying the patient as well as procedure performed site marking. She was given perioperative IV antibiotics. There is then incised with a 11 blade scalpel making a 0.5cm incision over the area of maximal fluctuance. Small amount of pus drained from the abscess cavity and a culture stick was obtained the abscess cavity and sent to microbiology for Gram stain and aerobic and anaerobic cultures. A Karolyn clamp was then used to spread in the abscess cavity to break down any loculations. There was no abscess beyond the small cavity. The wound was then packed with quarter-inch iodoform gauze tightly to achieve hemostasis. It was then covered with 4x4 gauze and Tegaderm then a pressure dressing. The patient tolerated the procedure well no complications. All sponges, needles, and instrument counts were correct at the end procedure. EBL was _5__cc. The patient remained in the operating room under the care of Dr. Noble the perform the left hip pending. Implants None Estimated Blood Loss 5 Drains No Packing Yes (Quarter-inch iodoform gauze left axillary abscess.) Pathology Other (Culture stick of abscess cavity sent for Gram stain, aerobic, and anaerobic cultures.) Complications No immediate complications Condition Stable Disposition Other (Patient left in the operating room under general endotracheal anesthesia in the care of Dr. Noble to perform the left hip pinning.) [facility] Billing Surgery - Charge Forward: Surgery Billing
[2025-08-25] MEDS: LACTATED RINGERS 1,000 ML 30 ML IV CONT (17:00)
--- NOTE | 2025-08-25 17:02 | W.PM.PROC2 ---
Procedure Note - Detailed Date of Procedure 08/25/25 Pre-op Diagnosis LEFT FEMORAL NECK FRACTURE Post-op Diagnosis Same Procedure Performed PERCUTANEOUS PINNING LEFT FEMORAL NECK FRACTURE Surgeon Vini Carpio MD Anesthesia General Description of Procedure THE PATIENT WAS TAKEN TO THE OPERATING ROOM AND PLACED UNDER GENERAL ANESTHESIA. THE PATIENT WAS PLACED ON A FRACTURE TABLE. THE LEFT LOWER EXTREMITY WAS PREPPED AND DRAPED IN THE STERIL FASHION FROM THE KNEE TO THE ILIAC CREST. THE INCISION WAS MADE ON THE LATERAL HIP JUST DISTAL TO THE GREATER TROCHANTER DOWN TO THE BONE. BLEEDERS WERE CAUTERIZED. 3 GUIDE PINS WERE PLACED THROUGH THE FEMORAL NECK AND PASSED THE FRACTURE SITE AND IN TO THE SUBCHONDRAL BONE OF THE FEMORAL HEAD. THREE ARTHREX CANNULATED SCREWS WERE PLACED OVER THE GUIDE PINS AND THESE WERE SHOWN TO BE IN GOOD POSITION PER FLUOROSCOPY ON BOTH THE AP AND LATERAL VIEWS. ALL SCREWS HAD EXCELLENT BITES. THE WOUND WAS WASHED WELL. THE DEEP FASCIAL LAYER WAS APPROXIMATED WITH #1 VICRYL SUTURE, THE SUBCUTANEOUS LAYER WITH 2-0 VICRYL AND THE SKIN WAS APPROXIMATED WITH TEDDY. A STERILE DRESSING WAS PLACED. THE PATIENT WAS EXTUBATED AND SENT TO RECOVERY ROOM Estimated Blood Loss 5 Drains No Complications No immediate complications Condition Stable Disposition PACU
[2025-08-25] MEDS: fentaNYL CITRATE INJ (*CRX) 100 MCG/2 ML VIAL 25 MCG IV PUSH ×2 (17:17→17:20)
[2025-08-25] MEDS: SENNA/DOCUSATE SODIUM TABLET 2 TAB PO (18:26)
[2025-08-25] MEDS: diazePAM (*CRX) 5 MG TABLET PO (18:26)
[2025-08-25] MEDS: FAMOTIDINE 20 MG TABLET PO (20:24)
[2025-08-26] MEDS: ceFAZolin 2 GM in SODIUM CHLORIDE 0.9% IV 50 ML 100 ML IVPB ×3 (00:50→16:45)
[2025-08-26] MEDS: oxyCODONE/ACETAMINOPHEN (*CRX) 5-325 MG TABLET 1 TABLET PO ×4 (01:30→20:19)
[2025-08-26 02:36] VITALS: BP 151/52; PULSE 93; RESP 18; TEMP 37.5; O2SAT 96
[2025-08-26 05:38] LABS: Hematocrit 42.8 % (37.0-47.0); Hemoglobin 13.4 g/dL (12.0-15.0); Immature Granulocyte Percent A 0.3 % (0-0.5); Lymphocytes Absolute Auto 1.23 K/mm3 (0.9-3.2); Mean Corpuscular HGB Conc 31.3 g/dl (32-36); Mean Corpuscular Hemoglobin 29.1 pg (26-34); Mean Corpuscular Volume 92.8 fl (80-100); Nucleated Red Blood Cells Absolute Auto 0.000 K/mm3 (0.0-0.012); Nucleated Red Blood Cells Perc 0.0 % (0.0-0.2); Platelet Count Result 250 k/mm3 (150-375); Red Blood Count 4.61 M/mm3 (4.2-5.4); White Blood Count 6.6 K/mm3 (4.5-10.0)
[2025-08-26 06:00] VITALS: BP 149/75; PULSE 84; RESP 18; TEMP 37.2; O2SAT 98
[2025-08-26 06:01] LABS: Anion Gap 2 mmol/L (4-12); Blood Urea Nitrogen 9 mg/dL (7-17); Calcium 8.5 mg/dL (8.4-10.2); Carbon Dioxide 28 mmol/L (22-30); Chloride 106 mmol/L (98-107); Estimated CRCL calculation 66 ml/min; Estimated Glomerular Filt Rate > 60; Glucose 93 mg/dL (65-110); Potassium 4.2 mmol/L (3.4-5.0); Sodium 136 mmol/L (137-145)
--- NOTE | 2025-08-26 08:02 | PM.IMPN ---
Progress Note: A&P Assessment and Plan (1) Femoral neck fracture: Qualifiers: Encounter type: initial encounter Fracture type: closed Laterality: left Qualified Code(s): S72.002A - Fracture of unspecified part of neck of left femur, initial encounter for closed fracture Code(s): S72.009A - Fracture of unspecified part of neck of unspecified femur, initial encounter for closed fracture Status: Acute Assessment and Plan: Here for left hip pain following a ground level fall on 08/24. Unable to ambulate post fall. Hip/pelvic XR concerning for a left femoral neck fracture. CT of the hip obtained and it showed a nondisplaced left femoral neck fracture. No head strike or loss of consciousness. bedrest analgesics p.r.n. stool softener p.r.n. and MiraLax p.r.n. UA not indicative of infection orthopedics consulted POD 08/25/25 Percutaneous pinning of left femoral neck fx Continue prn pain control, dvt prophylaxis w/ Lovenox, incentive spirometer PT/OT evals - recommend SNF Working with CC regarding placement (2) Abscess of axilla, left: Code(s): L02.412 - Cutaneous abscess of left axilla Status: Acute Assessment and Plan: Denies history of hydradenitis suppurative. Developed approximately 1 week ago. Denies systemic symptoms. general surgery consulted for I&D started on vancomycin on 08/24 wound culture placed in case of spontaneous rupture or if I&D is able to take place at the bedside this evening POD 08/25/25 Simple incision and drainage of superficial left axillary abscess Plan Diet: regular, NPO GI Prophylaxis: n/a DVT Prophylaxis: SCDs IV fluids: 125 mL/hr Lines/Tubes: peripheral IV Code Status: full code Subjective Date/time seen: 08/26/25 08:02 Interval history: 60 y/o F with PMH of back surgery, neck surgery, and carpal tunnel surgery presents here for further evaluation after a ground level fall. 08/26/2025 Patient sitting comfortably at bedside at time of exam. Post op from 08/25/25 of Percutaneous pinning left femoral neck fracture. Pt feeling sore today but otherwise has no complaints. She is sitting up in a chair and denies any chest pain, SOB, n/v, abd pain, dizziness or lower extremity numbness/tingling. Worked with PT today, recommend SNF. Will work with CC regarding placement. Otherwise stable and no complaints. Review of Systems Review of Systems: All systems reviewed & are unremarkable except as noted in HPI and below Exam Const: General: comfortable and no acute distress Other: , female, nontoxic appearance HENMT: Face/Nose/Sinus: Normal nares present Mouth: Yes moist mucous membranes Eyes: General: appearance normal, both eyes and all related structures Sclera: sclerae normal Pupils: Equal, round and reactive pupils present EOM: EOMs intact bilaterally Resp: Effort & Inspection: normal respiratory effort Auscultation: clear to auscultation bilaterally Cardio: Rate: regular rate Rhythm: regular rhythm Other: S1-S2 present without murmur, rub, ectopy GI: Other: Abdomen soft, nondistended, nontender. Normoactive bowel sounds in all quadrants. Skin: General skin exam: normal color, no rashes or lesions noted and wounds noted Wounds: wounds noted Other: Axilla dressing clean, dry and intact. Neuro: Cranial nerves: Yes Equal, round and reactive pupils present Speech: normal speech Motor exam (neuro): 5/5 motor strength present throughout Sensory Exam: normal sensation Other: A&O x4 Extrem: General: normal to inspection Other: DP pulses 2+ bilaterally. L hip tender, limited ROM given. Surgical site incision site clean, dry and intact Psych: Mental Status: mental status grossly normal Affect: normal affect Other: Good insight and judgment, very pleasant Objective Data Vital Signs Vital Signs: Vital Signs - 24 hr 08/25/25 14:00 08/25/25 17:00 08/25/25 17:15 Temperature 98.0 F 97.2 F L Pulse Rate 75 71 82 Respiratory Rate 16 16 14 Blood Pressure 152/98 H 175/90 H 165/76 H Pulse Oximetry 99 100 100 Oxygen Delivery Simple Face Mask Simple Face Mask Oxygen Flow Rate 6 6 08/25/25 17:30 08/25/25 17:45 08/25/25 18:15 Temperature 97.1 F L 97.4 F L Pulse Rate 85 80 88 Respiratory Rate 14 12 Blood Pressure 152/94 H 156/86 H 148/104 H Pulse Oximetry 100 96 94 Oxygen Delivery Room Air Room Air Oxygen Flow Rate 08/25/25 18:30 08/25/25 20:00 08/25/25 22:41 Temperature 97.5 F L 98.3 F Pulse Rate 85 102 H Respiratory Rate 18 Blood Pressure 158/93 H 150/83 H Pulse Oximetry 95 98 Oxygen Delivery Room Air Oxygen Flow Rate 08/26/25 02:36 08/26/25 06:00 Temperature 99.5 F 99.0 F Pulse Rate 93 84 Respiratory Rate 18 18 Blood Pressure 151/52 H 149/75 H Pulse Oximetry 96 98 Oxygen Delivery Oxygen Flow Rate Intake/Output Intake/Output: Intake & Output 08/23/25 08/24/25 08/25/25 08/26/25 23:59 23:59 23:59 23:59 Intake Total 2207.1 Output Total 1750 900 Balance 457.1 -900 Meds/Results Medications: Active Medications Generic Name Dose Route Start Last Admin Trade Name Freq PRN Reason Stop Dose Admin Acetaminophen 500 mg 08/25/25 17:56 Acetaminophen 500 Mg Tablet PO Q6H PRN Pain Rated 1-3 Celecoxib 200 mg 08/26/25 08:00 Celecoxib 200 Mg Capsule PO DAILY@0800 [facility] Diazepam 5 mg 08/25/25 17:56 08/25/25 18:26 Diazepam (*Crx) 5 Mg Tablet PO 5 mg Q8H PRN Administration Muscle Spasm Docusate Sodium 100 mg 08/24/25 20:33 Docusate Sodium 100 Mg Capsule PO Q12H PRN Constipation Enoxaparin Sodium 40 mg 08/26/25 09:00 Enoxaparin 40 Mg/0.4 Ml Syringe SUB-Q DAILY ALYCE Famotidine 20 mg 08/25/25 21:00 08/25/25 20:24 Famotidine 20 Mg Tablet PO 20 mg Q12HR ALYCE Administration Hydromorphone HCl 1 mg 08/25/25 17:56 Hydromorphone Hcl Inj (*Crx) 1 Mg/Ml Syr IV PUSH Q2H PRN Breakthrough Pain Rated 7-10 or NPO Hydromorphone HCl 0.5 mg 08/25/25 17:56 Hydromorphone Hcl Inj (*Crx) 1 Mg/Ml Syr IV PUSH Q2H PRN Breakthrough Pain Rated 4-6 or NPO Hydroxyzine Pamoate 50 mg 08/25/25 17:56 Hydroxyzine Pamoate 25 Mg Capsule PO Q4H PRN Itching Cefazolin Sodium 2 gm/ Sodium 50 mls @ 100 mls/hr 08/26/25 00:00 08/26/25 00:50 Chloride IVPB 08/26/25 16:29 100 mls/hr Q8H ALYCE Administration Ibuprofen 800 mg in 200 mls @ 400 mls/hr 08/25/25 17:56 Caldolor 800 Mg/200 Ml IVPB Q6H PRN Breakthrough Pain Rated 1-3 or NPO Naloxone HCl 0.1 mg 08/25/25 17:56 Naloxone Hcl 0.4 Mg/Ml Vial IV PUSH Q2M PRN Opiate Reversal Ondansetron HCl 4 mg 08/25/25 17:56 Ondansetron Inj 4 Mg/2 Ml Vial IV PUSH Q4H PRN Nausea And Vomiting Oxycodone/Acetaminophen 1 tablet 08/25/25 17:56 08/26/25 01:30 Oxycodone/Acetaminophen (*Crx) 5-325 Mg Tablet PO 1 tablet Q4H PRN Administration Pain Rated 4-6 Oxycodone/Acetaminophen 1 tab 08/25/25 17:56 Oxycodone/Acetaminophen (*Crx) 10-325 Mg Tablet PO Q6H PRN Pain Rated 7-10 Polyethylene Glycol 17 gm 08/24/25 20:33 Polyethylene Glycol 3350 17 Gm Powd.Pack PO QAM PRN Constipation Polyethylene Glycol 17 gm 08/26/25 09:00 Polyethylene Glycol 3350 17 Gm Powd.Pack PO QAM ALYCE Senna/Docusate Sodium 2 tab 08/25/25 17:56 08/25/25 18:26 Senna/Docusate Sodium Tablet PO 2 tab BID ALYCE Administration Radiology Results: ITS Impressions Hip/Pelvis X-Ray 08/24/25 16:54 Impression: Probable left femoral neck fracture. CT recommended Hip CT 08/24/25 18:08 IMPRESSION: Nondisplaced left femoral neck fracture Labs Labs: Laboratory Results - last 24 hr 08/25/25 08/26/25 10:31 05:29 WBC 6.6 RBC 4.61 Hgb 13.4 Hct 42.8 MCV 92.8 MCH 29.1 MCHC 31.3 L RDW 12.1 Plt Count 250 MPV 9.4 Immature Gran % (Auto) 0.3 Neut % (Auto) 62.8 Lymph % (Auto) 18.6 [place] % (Auto) 13.5 H Eos % (Auto) 4.5 H Baso % (Auto) 0.3 Lymph # (Auto) 1.23 [place] # (Auto) 0.9 H Eos # (Auto) 0.3 Baso # (Auto) 0.0 Abs Immat Gran (auto) 0.02 Absolute Neuts (auto) 4.1 Absolute Nucleated RBC 0.000 Nucleated RBC % 0.0 Sodium 136 L Potassium 4.2 Chloride 106 Carbon Dioxide 28 Anion Gap 2 L BUN 9 Creatinine 0.72 Estim Creat Clear Calc 66 Estimated GFR > 60 Glucose 93 Calcium 8.5 Urine Opiates Screen Positive A Urine Methadone Screen Negative Ur Barbiturates Screen Negative Ur Phencyclidine Scrn Negative Ur Amphetamine Screen Negative U Benzodiazepines Scrn Negative Urine Cocaine Screen Positive A U Cannabinoids Screen Negative Quality VTE Prophylaxis VTE prophylaxis: mechanical ordered
[2025-08-26] MEDS: SENNA/DOCUSATE SODIUM TABLET 2 TAB PO ×2 (08:40→16:29)
[2025-08-26] MEDS: FAMOTIDINE 20 MG TABLET PO ×2 (08:41→20:20)
[2025-08-26] MEDS: ENOXAPARIN 40 MG/0.4 ML SYRINGE SUB-Q (08:41)
[2025-08-26] MEDS: CELECOXIB 200 MG CAPSULE PO (08:41)
--- NOTE | 2025-08-26 09:38 | WPDANESPN ---
Anes - Prog Note Post-Op Date/Time: 08/26/25 09:38 Cardiovascular status: normal Respiratory status: normal Airway patency: baseline Mental status: baseline Post-Op hydration status: normal Vital Signs: Last Vital Signs Temp 99.0 F 08/26/25 06:00 Pulse 84 08/26/25 06:00 Resp 18 08/26/25 06:00 BP 149/75 H 08/26/25 06:00 Pulse Ox 98 08/26/25 06:00 O2 Del Method Room Air 08/26/25 08:36 O2 Flow Rate 6 08/25/25 17:15 Pain Score (VAS): 0/10 I/O: Intake & Output 08/25/25 08/26/25 08/26/25 23:59 07:59 15:59 Intake Total 580 50 90 Output Total 250 900 Balance 330 -850 90 Laboratory Tests 08/26/25 05:29 08/26/25 05:29 08/25/25 08/26/25 10:31 05:29 WBC 6.6 RBC 4.61 Hgb 13.4 Hct 42.8 MCV 92.8 MCH 29.1 MCHC 31.3 L RDW 12.1 Plt Count 250 MPV 9.4 Immature Gran % (Auto) 0.3 Neut % (Auto) 62.8 Lymph % (Auto) 18.6 [place] % (Auto) 13.5 H Eos % (Auto) 4.5 H Baso % (Auto) 0.3 Lymph # (Auto) 1.23 [place] # (Auto) 0.9 H Eos # (Auto) 0.3 Baso # (Auto) 0.0 Abs Immat Gran (auto) 0.02 Absolute Neuts (auto) 4.1 Absolute Nucleated RBC 0.000 Nucleated RBC % 0.0 Sodium 136 L Potassium 4.2 Chloride 106 Carbon Dioxide 28 Anion Gap 2 L BUN 9 Creatinine 0.72 Estim Creat Clear Calc 66 Estimated GFR > 60 Glucose 93 Calcium 8.5 Urine Opiates Screen Positive A Urine Methadone Screen Negative Ur Barbiturates Screen Negative Ur Phencyclidine Scrn Negative Ur Amphetamine Screen Negative U Benzodiazepines Scrn Negative Urine Cocaine Screen Positive A U Cannabinoids Screen Negative Post-procedural complaints: none Patient Feedback: Patient satisfied with anesthetic care.
--- NOTE | 2025-08-26 10:23 | PM.PNORT ---
Progress Note: A&P Assessment and Plan (1) Femoral neck fracture: Qualifiers: Encounter type: initial encounter Fracture type: closed Laterality: left Qualified Code(s): S72.002A - Fracture of unspecified part of neck of left femur, initial encounter for closed fracture Code(s): S72.009A - Fracture of unspecified part of neck of unspecified femur, initial encounter for closed fracture Status: Acute Assessment and Plan: POD #1 : PERCUTANEOUS PINNING LEFT FEMORAL NECK FRACTURE Continue PT/OT. PWB (50%). Walker. HIGH FALL RISK. Continue pain control. Ice Hip. Protect skin. DVT prophylaxis with Lovenox. SCDs. Incentive Spirometry Use reviewed. Monitor Dressing. Change prior to discharge. Bowel Regimen. Dispo: SNF for Rehab pending progress with PT/OT Plan Reviewed history, exam, radiographs and current labs with attending MD and covering surgeon, Dr. Carpio, who agrees with current plan as indicated above. No further recommendations from Dr. Carpio at this time. Subjective Subjective Date/Time Seen: 08/26/25 0900 Post Op day: 1 Interval history: POD #1: PERCUTANEOUS PINNING LEFT FEMORAL NECK FRACTURE Patient awake/alert. Sitting in chair. C/o left hip pain. Review of Systems Constitutional: Constitutional: Denies chills, Denies fatigue, Denies fever(s), Denies night sweats and Denies weakness Cardiovascular: Cardiovascular: Denies chest pain, Denies lightheadedness, Denies palpitations and Denies dyspnea Respiratory: Respiratory: Denies cough, Denies dyspnea and Denies wheezing Gastrointestinal: Gastrointestinal: Denies abdominal pain, Denies diarrhea, Denies nausea and Denies vomiting Musculoskeletal: Musculoskeletal: Reports arthralgias (left hip ), Reports joint swelling (left hip ) and Denies numbness Neurologic: Denies numbness and Denies weakness Endocrine: Endocrine: Denies fatigue and Denies palpitations Allergic/Immunologic: Allergic/Immunologic: Denies wheezing Exam Const: General: comfortable and no acute distress Orientation/consciousness: patient oriented x3 Limitations: no limitations Resp: Effort & Inspection: normal respiratory effort Cardio: Rate: regular rate Rhythm: regular rhythm GI: Inspection: non-distended Skin: General skin exam: normal color and wounds noted (incision left hip C/D/I ) Wounds: wounds noted (incision left hip C/D/I ) Neuro: General: patient oriented x3 Extrem: Left lower extremity: hip/thigh Details: tenderness Location: of the hip Location: laterally and anteriorly, swelling (thigh soft ) Location: of the hip (lateral. ), abnormal ROM (limitations with internal/external rotation and flexion/extension due to recent surgical intervention ) and other (incision lateral hip c/d/i. ), knee Details: normal to inspection and normal ROM; no tenderness and no swelling, lower leg (Negative Lawrence's Sign ) Details: no edema, ankle (+ankle dorsiflexion/plantarflexion ) Details: normal to inspection, no edema and normal ROM; no tenderness, no swelling and no warmth and foot Details: normal capillary refill, toes with normal ROM, vascular exam Details: dorsalis pedis pulse present and motor-sensory exam light-touch normal in all toes; no tenderness, no ecchymosis and no crepitus Psych: Mental Status: mental status grossly normal Affect: normal affect Objective Data Vital Signs Vital Signs: Vital Signs - 24 hr 08/25/25 14:00 08/25/25 17:00 08/25/25 17:15 Temperature 36.7 C 36.2 C L Pulse Rate 75 71 82 Respiratory Rate 16 16 14 Blood Pressure 152/98 H 175/90 H 165/76 H Pulse Oximetry 99 100 100 Oxygen Delivery Simple Face Mask Simple Face Mask Oxygen Flow Rate 6 6 08/25/25 17:30 08/25/25 17:45 08/25/25 18:15 Temperature 36.2 C L 36.3 C L Pulse Rate 85 80 88 Respiratory Rate 14 12 Blood Pressure 152/94 H 156/86 H 148/104 H Pulse Oximetry 100 96 94 Oxygen Delivery Room Air Room Air Oxygen Flow Rate 08/25/25 18:30 08/25/25 20:00 08/25/25 22:41 Temperature 36.4 C L 36.8 C Pulse Rate 85 102 H Respiratory Rate 18 Blood Pressure 158/93 H 150/83 H Pulse Oximetry 95 98 Oxygen Delivery Room Air Oxygen Flow Rate 08/26/25 02:36 08/26/25 06:00 08/26/25 08:36 Temperature 37.5 C 37.2 C Pulse Rate 93 84 Respiratory Rate 18 18 Blood Pressure 151/52 H 149/75 H Pulse Oximetry 96 98 Oxygen Delivery Room Air Oxygen Flow Rate Intake/Output Intake/Output: Intake & Output 08/23/25 08/24/25 08/25/25 08/26/25 23:59 23:59 23:59 23:59 Intake Total 2207.1 140 Output Total 1750 900 Balance 457.1 -760 Meds/Results Medications: Active Medications Generic Name Dose Route Start Last Admin Trade Name Freq PRN Reason Stop Dose Admin Acetaminophen 500 mg 08/25/25 17:56 Acetaminophen 500 Mg Tablet PO Q6H PRN Pain Rated 1-3 Celecoxib 200 mg 08/26/25 08:00 08/26/25 08:41 Celecoxib 200 Mg Capsule PO 200 mg DAILY@0800 ALYCE Administration Diazepam 5 mg 08/25/25 17:56 08/25/25 18:26 Diazepam (*Crx) 5 Mg Tablet PO 5 mg Q8H PRN Administration Muscle Spasm Docusate Sodium 100 mg 08/24/25 20:33 Docusate Sodium 100 Mg Capsule PO Q12H PRN Constipation Enoxaparin Sodium 40 mg 08/26/25 09:00 08/26/25 08:41 Enoxaparin 40 Mg/0.4 Ml Syringe SUB-Q 40 mg DAILY ALYCE Administration Famotidine 20 mg 08/25/25 21:00 08/26/25 08:41 Famotidine 20 Mg Tablet PO 20 mg Q12HR ALYCE Administration Hydromorphone HCl 1 mg 08/25/25 17:56 Hydromorphone Hcl Inj (*Crx) 1 Mg/Ml Syr IV PUSH Q2H PRN Breakthrough Pain Rated 7-10 or NPO Hydromorphone HCl 0.5 mg 08/25/25 17:56 Hydromorphone Hcl Inj (*Crx) 1 Mg/Ml Syr IV PUSH Q2H PRN Breakthrough Pain Rated 4-6 or NPO Hydroxyzine Pamoate 50 mg 08/25/25 17:56 Hydroxyzine Pamoate 25 Mg Capsule PO Q4H PRN Itching Cefazolin Sodium 2 gm/ Sodium 50 mls @ 100 mls/hr 08/26/25 00:00 08/26/25 08:41 Chloride IVPB 08/26/25 16:29 100 mls/hr Q8H ALYCE Administration Ibuprofen 800 mg in 200 mls @ 400 mls/hr 08/25/25 17:56 Caldolor 800 Mg/200 Ml IVPB Q6H PRN Breakthrough Pain Rated 1-3 or NPO Naloxone HCl 0.1 mg 08/25/25 17:56 Naloxone Hcl 0.4 Mg/Ml Vial IV PUSH Q2M PRN Opiate Reversal Ondansetron HCl 4 mg 08/25/25 17:56 Ondansetron Inj 4 Mg/2 Ml Vial IV PUSH Q4H PRN Nausea And Vomiting Oxycodone/Acetaminophen 1 tablet 08/25/25 17:56 08/26/25 08:40 Oxycodone/Acetaminophen (*Crx) 5-325 Mg Tablet PO 1 tablet Q4H PRN Administration Pain Rated 4-6 Oxycodone/Acetaminophen 1 tab 08/25/25 17:56 Oxycodone/Acetaminophen (*Crx) 10-325 Mg Tablet PO Q6H PRN Pain Rated 7-10 Polyethylene Glycol 17 gm 08/24/25 20:33 Polyethylene Glycol 3350 17 Gm Powd.Pack PO QAM PRN Constipation Polyethylene Glycol 17 gm 08/26/25 09:00 08/26/25 08:41 Polyethylene Glycol 3350 17 Gm Powd.Pack PO 17 gm QAM ALYCE Administration Senna/Docusate Sodium 2 tab 08/25/25 17:56 08/26/25 08:40 Senna/Docusate Sodium Tablet PO 2 tab BID AYLCE Administration Radiology Results: ITS Impressions Hip/Pelvis X-Ray 08/24/25 16:54 Impression: Probable left femoral neck fracture. CT recommended Hip CT 08/24/25 18:08 IMPRESSION: Nondisplaced left femoral neck fracture Labs Labs: Laboratory Results - last 24 hr 08/25/25 08/26/25 10:31 05:29 WBC 6.6 RBC 4.61 Hgb 13.4 Hct 42.8 MCV 92.8 MCH 29.1 MCHC 31.3 L RDW 12.1 Plt Count 250 MPV 9.4 Immature Gran % (Auto) 0.3 Neut % (Auto) 62.8 Lymph % (Auto) 18.6 [place] % (Auto) 13.5 H Eos % (Auto) 4.5 H Baso % (Auto) 0.3 Lymph # (Auto) 1.23 [place] # (Auto) 0.9 H Eos # (Auto) 0.3 Baso # (Auto) 0.0 Abs Immat Gran (auto) 0.02 Absolute Neuts (auto) 4.1 Absolute Nucleated RBC 0.000 Nucleated RBC % 0.0 Sodium 136 L Potassium 4.2 Chloride 106 Carbon Dioxide 28 Anion Gap 2 L BUN 9 Creatinine 0.72 Estim Creat Clear Calc 66 Estimated GFR > 60 Glucose 93 Calcium 8.5 Urine Opiates Screen Positive A Urine Methadone Screen Negative Ur Barbiturates Screen Negative Ur Phencyclidine Scrn Negative Ur Amphetamine Screen Negative U Benzodiazepines Scrn Negative Urine Cocaine Screen Positive A U Cannabinoids Screen Negative
[2025-08-26 11:37] VITALS: BP 148/86; PULSE 68; RESP 16; TEMP 36.8; O2SAT 99
--- NOTE | 2025-08-26 13:27 | P.PNGS_ITS ---
Progress Note: A&P Assessment and Plan (1) Abscess of axilla, left: Code(s): L02.412 - Cutaneous abscess of left axilla Status: Acute Assessment and Plan: * Improving s/p I&D simple left axillary abscess. Packing removed today and abscess appears adequately drained. * Continue antibiotics and gauze dressing changes. Plan I have discussed the patient's case, recommendations, and treatment plan with Dr. Vann. Subjective Subjective Date/Time Seen: 08/26/25 13:27 Post Op day: 1 (Simple incision and drainage of superficial left axillary abscess) Patient reports: no new complaints, feels better and afebrile Interval history: No changes overnight. Denies any pain. WBC normal. Exam Narrative: Left axillary packing removed, no purulent drainage, induration improving and erythema resolved. Gauze dressing applied. Objective Data Vital Signs Vital Signs: Vital Signs - 24 hr 08/25/25 14:00 08/25/25 17:00 08/25/25 17:15 Temperature 98.0 F 97.2 F L Pulse Rate 75 71 82 Respiratory Rate 16 16 14 Blood Pressure 152/98 H 175/90 H 165/76 H Pulse Oximetry 99 100 100 Oxygen Delivery Simple Face Mask Simple Face Mask Oxygen Flow Rate 6 6 08/25/25 17:30 08/25/25 17:45 08/25/25 18:15 Temperature 97.1 F L 97.4 F L Pulse Rate 85 80 88 Respiratory Rate 14 12 Blood Pressure 152/94 H 156/86 H 148/104 H Pulse Oximetry 100 96 94 Oxygen Delivery Room Air Room Air Oxygen Flow Rate 08/25/25 18:30 08/25/25 20:00 08/25/25 22:41 Temperature 97.5 F L 98.3 F Pulse Rate 85 102 H Respiratory Rate 18 Blood Pressure 158/93 H 150/83 H Pulse Oximetry 95 98 Oxygen Delivery Room Air Oxygen Flow Rate 08/26/25 02:36 08/26/25 06:00 08/26/25 08:00 Temperature 99.5 F 99.0 F Pulse Rate 93 84 Respiratory Rate 18 18 Blood Pressure 151/52 H 149/75 H Pulse Oximetry 96 98 Oxygen Delivery Room Air Oxygen Flow Rate 08/26/25 08:36 08/26/25 11:37 Temperature 98.2 F Pulse Rate 68 Respiratory Rate 16 Blood Pressure 148/86 H Pulse Oximetry 99 Oxygen Delivery Room Air Oxygen Flow Rate Intake/Output Intake/Output: Intake & Output 08/23/25 08/24/25 08/25/25 08/26/25 23:59 23:59 23:59 23:59 Intake Total 2207.1 230 Output Total 1750 900 Balance 457.1 -670 Meds/Results Medications: Active Medications Generic Name Dose Route Start Last Admin Trade Name Freq PRN Reason Stop Dose Admin Acetaminophen 500 mg 08/25/25 17:56 Acetaminophen 500 Mg Tablet PO Q6H PRN Pain Rated 1-3 Celecoxib 200 mg 08/26/25 08:00 08/26/25 08:41 Celecoxib 200 Mg Capsule PO 200 mg DAILY@0800 [facility] Administration Diazepam 5 mg 08/25/25 17:56 08/25/25 18:26 Diazepam (*Crx) 5 Mg Tablet PO 5 mg Q8H PRN Administration Muscle Spasm Docusate Sodium 100 mg 08/24/25 20:33 Docusate Sodium 100 Mg Capsule PO Q12H PRN Constipation Enoxaparin Sodium 40 mg 08/26/25 09:00 08/26/25 08:41 Enoxaparin 40 Mg/0.4 Ml Syringe SUB-Q 40 mg DAILY ALYCE Administration Famotidine 20 mg 08/25/25 21:00 08/26/25 08:41 Famotidine 20 Mg Tablet PO 20 mg Q12HR ALYCE Administration Hydromorphone HCl 1 mg 08/25/25 17:56 Hydromorphone Hcl Inj (*Crx) 1 Mg/Ml Syr IV PUSH Q2H PRN Breakthrough Pain Rated 7-10 or NPO Hydromorphone HCl 0.5 mg 08/25/25 17:56 Hydromorphone Hcl Inj (*Crx) 1 Mg/Ml Syr IV PUSH Q2H PRN Breakthrough Pain Rated 4-6 or NPO Hydroxyzine Pamoate 50 mg 08/25/25 17:56 Hydroxyzine Pamoate 25 Mg Capsule PO Q4H PRN Itching Cefazolin Sodium 2 gm/ Sodium 50 mls @ 100 mls/hr 08/26/25 00:00 08/26/25 08:41 Chloride IVPB 08/26/25 16:29 100 mls/hr Q8H ALYCE Administration Ibuprofen 800 mg in 200 mls @ 400 mls/hr 08/25/25 17:56 Caldolor 800 Mg/200 Ml IVPB Q6H PRN Breakthrough Pain Rated 1-3 or NPO Naloxone HCl 0.1 mg 08/25/25 17:56 Naloxone Hcl 0.4 Mg/Ml Vial IV PUSH Q2M PRN Opiate Reversal Ondansetron HCl 4 mg 08/25/25 17:56 Ondansetron Inj 4 Mg/2 Ml Vial IV PUSH Q4H PRN Nausea And Vomiting Oxycodone/Acetaminophen 1 tablet 08/25/25 17:56 08/26/25 08:40 Oxycodone/Acetaminophen (*Crx) 5-325 Mg Tablet PO 1 tablet Q4H PRN Administration Pain Rated 4-6 Oxycodone/Acetaminophen 1 tab 08/25/25 17:56 Oxycodone/Acetaminophen (*Crx) 10-325 Mg Tablet PO Q6H PRN Pain Rated 7-10 Polyethylene Glycol 17 gm 08/24/25 20:33 Polyethylene Glycol 3350 17 Gm Powd.Pack PO QAM PRN Constipation Polyethylene Glycol 17 gm 08/26/25 09:00 08/26/25 08:41 Polyethylene Glycol 3350 17 Gm Powd.Pack PO 17 gm QAM ALYCE Administration Senna/Docusate Sodium 2 tab 08/25/25 17:56 08/26/25 08:40 Senna/Docusate Sodium Tablet PO 2 tab BID ALYCE Administration Radiology Results: ITS Impressions Hip/Pelvis X-Ray 08/24/25 16:54 Impression: Probable left femoral neck fracture. CT recommended Hip CT 08/24/25 18:08 IMPRESSION: Nondisplaced left femoral neck fracture Labs Labs: Laboratory Results - last 24 hr 08/26/25 08/26/25 05:29 10:54 WBC 6.6 RBC 4.61 Hgb 13.4 Hct 42.8 MCV 92.8 MCH 29.1 MCHC 31.3 L RDW 12.1 Plt Count 250 MPV 9.4 Immature Gran % (Auto) 0.3 Neut % (Auto) 62.8 Lymph % (Auto) 18.6 [place] % (Auto) 13.5 H Eos % (Auto) 4.5 H Baso % (Auto) 0.3 Lymph # (Auto) 1.23 [place] # (Auto) 0.9 H Eos # (Auto) 0.3 Baso # (Auto) 0.0 Abs Immat Gran (auto) 0.02 Absolute Neuts (auto) 4.1 Absolute Nucleated RBC 0.000 Nucleated RBC % 0.0 Sodium 136 L Potassium 4.2 Chloride 106 Carbon Dioxide 28 Anion Gap 2 L BUN 9 Creatinine 0.72 Estim Creat Clear Calc 66 Estimated GFR > 60 Glucose 93 Calcium 8.5 Vancomycin Trough < 5.0 L
[2025-08-26 15:41] VITALS: BP 148/63; PULSE 68; RESP 16; TEMP 36.8; O2SAT 96
[2025-08-26] MEDS: diazePAM (*CRX) 5 MG TABLET PO (20:20)
[2025-08-26 22:00] VITALS: BP 134/80; PULSE 87; RESP 18; TEMP 36.8; O2SAT 97
[2025-08-27] MEDS: oxyCODONE/ACETAMINOPHEN (*CRX) 5-325 MG TABLET 1 TABLET PO ×3 (01:14→14:13)
[2025-08-27 01:21] VITALS: BP 122/79; PULSE 78; RESP 18; TEMP 36.3; O2SAT 97
--- NOTE | 2025-08-27 01:52 | ADMGEN ---
This patient, Lucy Amaya, was transferred from 3 Med Room 347-1 to 3 Med Surg Room 307-02. Patient/family oriented to hospital policies and general routines including ID bracelet, bed and alarms, visiting hours, pain management, procedures, bathroom and other care routines, personal items, smoking policy, room service/diet, and visiting hours. Information on how to activate the Rapid Response Team has been discussed. Patient/Family are encouraged to report perceived risks to care and to ask questions if they do not understand what they are told or what they should do.
[2025-08-27 05:43] VITALS: BP 116/71; PULSE 74; RESP 16; TEMP 36.1; O2SAT 94
[2025-08-27 07:03] LABS: Estimated CRCL calculation 79 ml/min; Estimated Glomerular Filt Rate > 60
[2025-08-27 07:48] LABS: Hematocrit 38.8 % (37.0-47.0); Hemoglobin 12.6 g/dL (12.0-15.0); Immature Granulocyte Percent A 0.4 % (0-0.5); Lymphocytes Absolute Auto 1.32 K/mm3 (0.9-3.2); Mean Corpuscular HGB Conc 32.5 g/dl (32-36); Mean Corpuscular Hemoglobin 29.7 pg (26-34); Mean Corpuscular Volume 91.5 fl (80-100); Nucleated Red Blood Cells Absolute Auto 0.000 K/mm3 (0.0-0.012); Nucleated Red Blood Cells Perc 0.0 % (0.0-0.2); Platelet Count Result 238 k/mm3 (150-375); Red Blood Count 4.24 M/mm3 (4.2-5.4); White Blood Count 4.8 K/mm3 (4.5-10.0)
[2025-08-27 07:58] LABS: Alanine Aminotransferase 14 U/L (6-35); Albumin Level 3.3 g/dL (3.5-5.1); Alkaline Phosphatase 63 U/L (38-126); Anion Gap 3 mmol/L (4-12); Aspartate Amino Transferase 29 U/L (14-36); Bilirubin,Total 0.4 mg/dL (0.2-1.3); Blood Urea Nitrogen 12 mg/dL (7-17); Calcium 8.5 mg/dL (8.4-10.2); Carbon Dioxide 26 mmol/L (22-30); Chloride 107 mmol/L (98-107); Glucose 106 mg/dL (65-110); Potassium 4.1 mmol/L (3.4-5.0); Sodium 136 mmol/L (137-145); Total Protein 6.1 g/dL (6.3-8.2)
[2025-08-27] MEDS: ENOXAPARIN 40 MG/0.4 ML SYRINGE SUB-Q (08:13)
[2025-08-27] MEDS: FAMOTIDINE 20 MG TABLET PO (08:13)
[2025-08-27] MEDS: SENNA/DOCUSATE SODIUM TABLET 2 TAB PO (08:13)
[2025-08-27] MEDS: CELECOXIB 200 MG CAPSULE PO (08:13)
--- NOTE | 2025-08-27 09:28 | P.PNOP_ITS ---
Progress Note: A&P Assessment and Plan (1) Femoral neck fracture: Qualifiers: Encounter type: initial encounter Fracture type: closed Laterality: left Qualified Code(s): S72.002A - Fracture of unspecified part of neck of left femur, initial encounter for closed fracture Code(s): S72.009A - Fracture of unspecified part of neck of unspecified femur, initial encounter for closed fracture Status: Acute Assessment and Plan: POD #2: PERCUTANEOUS PINNING LEFT FEMORAL NECK FRACTURE Continue PT/OT. PWB (50%). Walker. HIGH FALL RISK. Continue pain control. Ice Hip. Protect skin. DVT prophylaxis with Lovenox. SCDs. Incentive Spirometry Use reviewed. Monitor Dressing. Change today, nursing notified. Bowel Regimen. Dispo: SNF for Rehab vs. Home with Home Health pending progress with PT/OT F/U Scheduled Plan Reviewed history, exam, radiographs and current labs with attending MD and covering surgeon, Dr. Carpio, who agrees with current plan as indicated above. No further recommendations from Dr. Carpio at this time. Time Spent With Patient Time with patient: 15 - 25 minutes Subjective Subjective Date/Time Seen: 08/27/25 09:28 Post Op day: 2 Interval history: POD #2: PERCUTANEOUS PINNING LEFT FEMORAL NECK FRACTURE Patient awake/alert. Sitting in chair. C/o left hip pain. Review of Systems Constitutional: Constitutional: Denies chills, Denies fatigue, Denies fever(s), Denies night sweats and Denies weakness Cardiovascular: Cardiovascular: Denies chest pain, Denies lightheadedness, Denies palpitations and Denies dyspnea Respiratory: Respiratory: Denies cough, Denies dyspnea and Denies wheezing Gastrointestinal: Gastrointestinal: Denies abdominal pain, Denies diarrhea, Denies nausea and Denies vomiting Musculoskeletal: Musculoskeletal: Reports arthralgias (left hip ), Reports joint swelling (left hip ) and Denies numbness Neurologic: Denies numbness and Denies weakness Endocrine: Endocrine: Denies fatigue and Denies palpitations Allergic/Immunologic: Allergic/Immunologic: Denies wheezing Exam Const: General: comfortable and no acute distress Orientation/consciousness: patient oriented x3 Limitations: no limitations Resp: Effort & Inspection: normal respiratory effort Cardio: Rate: regular rate Rhythm: regular rhythm GI: Inspection: non-distended Skin: General skin exam: normal color and wounds noted (incision left hip C/D/I ) Wounds: wounds noted (incision left hip C/D/I ) Neuro: General: patient oriented x3 Extrem: Left lower extremity: hip/thigh Details: tenderness Location: of the hip Location: laterally and anteriorly, swelling (thigh soft ) Location: of the hip (lateral. ), abnormal ROM (limitations with internal/external rotation and flexion/extension due to recent surgical intervention ) and other (incision lateral hip c/d/i. ), knee Details: normal to inspection and normal ROM; no tenderness and no swelling, lower leg (Negative Lawrence's Sign ) Details: no edema, ankle (+ankle dorsiflexion/plantarflexion ) Details: normal to inspec tion, no edema and normal ROM; no tenderness, no swelling and no warmth and foot Details: normal capillary refill, toes with normal ROM, vascular exam Details: dorsalis pedis pulse present and motor-sensory exam light-touch normal in all toes; no tenderness, no ecchymosis and no crepitus Psych: Mental Status: mental status grossly normal Affect: normal affect Objective Data Vital Signs Vital Signs: Vital Signs - 24 hr 08/26/25 11:37 08/26/25 15:41 08/26/25 20:00 Temperature 36.8 C 36.8 C Pulse Rate 68 68 Respiratory Rate 16 16 Blood Pressure 148/86 H 148/63 H Pulse Oximetry 99 96 Oxygen Delivery Room Air 08/26/25 22:00 08/27/25 01:21 08/27/25 05:43 Temperature 36.8 C 36.3 C L 36.1 C L Pulse Rate 87 78 74 Respiratory Rate 18 18 16 Blood Pressure 134/80 122/79 116/71 Pulse Oximetry 97 97 94 Oxygen Delivery Intake/Output Intake/Output: Intake & Output 08/24/25 08/25/25 08/26/25 08/27/25 23:59 23:59 23:59 23:59 Intake Total 2207.1 760 100 Output Total 1750 900 600 Balance 457.1 -140 -500 Meds/Results Medications: Active Medications Generic Name Dose Route Start Last Admin Trade Name Freq PRN Reason Stop Dose Admin Acetaminophen 500 mg 08/25/25 17:56 Acetaminophen 500 Mg Tablet PO Q6H PRN Pain Rated 1-3 Celecoxib 200 mg 08/26/25 08:00 08/27/25 08:13 Celecoxib 200 Mg Capsule PO 200 mg DAILY@0800 [facility] Administration Diazepam 5 mg 08/25/25 17:56 08/26/25 20:20 Diazepam (*Crx) 5 Mg Tablet PO 5 mg Q8H PRN Administration Muscle Spasm Docusate Sodium 100 mg 08/24/25 20:33 Docusate Sodium 100 Mg Capsule PO Q12H PRN Constipation Enoxaparin Sodium 40 mg 08/26/25 09:00 08/27/25 08:13 Enoxaparin 40 Mg/0.4 Ml Syringe SUB-Q 40 mg DAILY ALYCE Administration Famotidine 20 mg 08/25/25 21:00 08/27/25 08:13 Famotidine 20 Mg Tablet PO 20 mg Q12HR ALYCE Administration Hydromorphone HCl 1 mg 08/25/25 17:56 Hydromorphone Hcl Inj (*Crx) 1 Mg/Ml Syr IV PUSH Q2H PRN Breakthrough Pain Rated 7-10 or NPO Hydromorphone HCl 0.5 mg 08/25/25 17:56 Hydromorphone Hcl Inj (*Crx) 1 Mg/Ml Syr IV PUSH Q2H PRN Breakthrough Pain Rated 4-6 or NPO Hydroxyzine Pamoate 50 mg 08/25/25 17:56 Hydroxyzine Pamoate 25 Mg Capsule PO Q4H PRN Itching Ibuprofen 800 mg in 200 mls @ 400 mls/hr 08/25/25 17:56 Caldolor 800 Mg/200 Ml IVPB Q6H PRN Breakthrough Pain Rated 1-3 or NPO Naloxone HCl 0.1 mg 08/25/25 17:56 Naloxone Hcl 0.4 Mg/Ml Vial IV PUSH Q2M PRN Opiate Reversal Ondansetron HCl 4 mg 08/25/25 17:56 Ondansetron Inj 4 Mg/2 Ml Vial IV PUSH Q4H PRN Nausea And Vomiting Oxycodone/Acetaminophen 1 tablet 08/25/25 17:56 08/27/25 08:12 Oxycodone/Acetaminophen (*Crx) 5-325 Mg Tablet PO 1 tablet Q4H PRN Administration Pain Rated 4-6 Oxycodone/Acetaminophen 1 tab 08/25/25 17:56 Oxycodone/Acetaminophen (*Crx) 10-325 Mg Tablet PO Q6H PRN Pain Rated 7-10 Polyethylene Glycol 17 gm 08/24/25 20:33 Polyethylene Glycol 3350 17 Gm Powd.Pack PO QAM PRN Constipation Polyethylene Glycol 17 gm 08/26/25 09:00 08/27/25 08:12 Polyethylene Glycol 3350 17 Gm Powd.Pack PO 17 gm QAM ALYCE Administration Senna/Docusate Sodium 2 tab 08/25/25 17:56 08/27/25 08:13 Senna/Docusate Sodium Tablet PO 2 tab BID ALYCE Administration Radiology Results: ITS Impressions Hip/Pelvis X-Ray 08/24/25 16:54 Impression: Probable left femoral neck fracture. CT recommended Hip CT 08/24/25 18:08 IMPRESSION: Nondisplaced left femoral neck fracture Labs Labs: Laboratory Results - last 24 hr 08/26/25 08/27/25 10:54 06:32 WBC 4.8 RBC 4.24 Hgb 12.6 Hct 38.8 MCV 91.5 MCH 29.7 MCHC 32.5 RDW 12.1 Plt Count 238 MPV 9.9 Immature Gran % (Auto) 0.4 Neut % (Auto) 46.5 Lymph % (Auto) 27.7 [place] % (Auto) 14.9 H Eos % (Auto) 9.9 H Baso % (Auto) 0.6 Lymph # (Auto) 1.32 [place] # (Auto) 0.7 H Eos # (Auto) 0.5 H Baso # (Auto) 0.0 Abs Immat Gran (auto) 0.02 Absolute Neuts (auto) 2.2 Absolute Nucleated RBC 0.000 Nucleated RBC % 0.0 Sodium 136 L Potassium 4.1 Chloride 107 Carbon Dioxide 26 Anion Gap 3 L BUN 12 Creatinine 0.59 L Estim Creat Clear Calc 79 Estimated GFR > 60 Glucose 106 Calcium 8.5 Total Bilirubin 0.4 AST 29 ALT 14 Alkaline Phosphatase 63 Total Protein 6.1 L Albumin 3.3 L Vancomycin Trough < 5.0 L
--- NOTE | 2025-08-27 11:04 | P.DS_ITS ---
DS: Admitting Diagnosis Discharge Date 08/27/25 Admitting Diagnosis Femoral neck fx DS: Discharge Diagnosis Discharge Diagnosis (1) Femoral neck fracture: Qualifiers: Encounter type: initial encounter Fracture type: closed Laterality: left Qualified Code(s): S72.002A - Fracture of unspecified part of neck of left femur, initial encounter for closed fracture Code(s): S72.009A - Fracture of unspecified part of neck of unspecified femur, initial encounter for closed fracture Status: Acute Assessment and Plan: Here for left hip pain following a ground level fall on 08/24. Unable to ambulate post fall. Hip/pelvic XR concerning for a left femoral neck fracture. CT of the hip obtained and it showed a nondisplaced left femoral neck fracture. No head strike or loss of consciousness. * bedrest * analgesics p.r.n. * stool softener p.r.n. and MiraLax p.r.n. * UA not indicative of infection * orthopedics consulted * POD 08/25/25 Percutaneous pinning of left femoral neck fx * Continue prn pain control, dvt prophylaxis w/ Lovenox, incentive spirometer * PT/OT evals - recommend SNF * Working with CC regarding placement (2) Abscess of axilla, left: Code(s): L02.412 - Cutaneous abscess of left axilla Status: Acute Assessment and Plan: Denies history of hydradenitis suppurative. Developed approximately 1 week ago. Denies systemic symptoms. * general surgery consulted for I&D * started on vancomycin on 08/24 * wound culture placed in case of spontaneous rupture or if I&D is able to take place at the bedside this evening * POD 08/25/25 Simple incision and drainage of superficial left axillary abscess Plan Diet: regular, NPO GI Prophylaxis: n/a DVT Prophylaxis: SCDs IV fluids: 125 mL/hr Lines/Tubes: peripheral IV Code Status: full code DS: Summary Hospital Course Reason for hospitalization: Fall Hospital Course: Per HPI: 60 y/o F with PMH of back surgery, neck surgery, and carpal tunnel surgery presents here for further evaluation after a ground level fall. The patient presents here from home via personal vehicle on 08/24 for further evaluation of left hip pain following a ground level fall. She reports she tripped over her dog this morning and was unable to initially ambulate due to the pain in her left hip. She reports/denies loss of consciousness, neck pain, or head strike. She is not currently on anticoagulation. She denies associated numbness or tingling into her bilateral lower extremities. Initially contacted EMS, however they would not take her to [place] and would only take her to [facility]. She elected to forego EMS transport in order to go to the hospital of her choosing. She then crawled to her truck and had her neighbor helped her in. She was not able to immediately drive and was stuck in her truck for quite some time which forced her to urinate into a trash can. Then able to drive herself to the hospital. Patient additionally reports an abscess to her left axilla that developed approximately 1 week ago. She reports tenderness with to the touch. Denies history of hidradenitis suppurative. Denies fever, chills, body aches. Initial VS at presentation: 97.8? F, HR 90, R 18, 116/62, and 100% on RA. ED workup showed: No leukocytosis, no anemia, normal coags, no significant electrolyte derangements, creatinine 0.58 and GFR >60, glucose 114. CC hip/pelvic XR showed probable left femoral neck fracture. Hip CT showed nondisplaced left femoral neck fracture. Hospital Course: The patient is a 60-year-old female with a history of back, neck, and carpal tunnel surgeries, as well as depression and anxiety, who presented on 08/24/25 after a ground-level fall at home, resulting in acute left hip pain and inability to ambulate. She reported tripping over her dog, denied loss of consciousness, head strike, or neurological symptoms, and was not on anticoagulation. She also noted a one-week history of a tender left axillary abscess without systemic symptoms. Initial evaluation revealed stable vital signs and laboratory studies notable for normal CBC, electrolytes, and renal function. Imaging demonstrated a nondisplaced left femoral neck fracture. She was admitted for surgical management and placed on bedrest with preoperative optimization. Orthopedic surgery was consulted, and after discussion of risks and benefits, the patient underwent percutaneous screw fixation of the left femoral neck fracture. Intraoperatively, general surgery performed a simultaneous incision and drainage of the left axillary abscess, which was uncomplicated. Postoperatively, she was started on DVT prophylaxis with enoxaparin, maintained on a bowel regimen, and received multimodal pain control including acetaminophen, celecoxib, and PRN opioids. Her wound care included dressing changes for both the hip incision and axillary site. The axillary abscess improved post-I&D, with resolution of erythema and no further drainage; antibiotics were continued as planned. Throughout her hospitalization, the patient remained afebrile and hemodynamically stable. Laboratory monitoring showed stable hemoglobin and no leukocytosis. She participated in physical and occupational therapy, progressing to 50% partial weight bearing with a walker. Discharge planning included consideration for residential facility versus home with home health, pending further progress with therapy. At last assessment on postoperative day 2, she was alert, sitting in a chair, and reported only left hip pain with no new complaints. Her surgical wounds were clean, dry, and intact, and she demonstrated no signs of infection or other complications. Patient was eventually accepted at [facility] in [place]. Cleared for discharge by Orthopedics and General Surgery. Will dicharge patient on Augmentin twice daily for 5 days for axilla abscess. Plan for discharge at this time. Status at Discharge Functional status at discharge: uses cane/walker Overall status at discharge: patient is progressing back to baseline Time Spent with Patient Time attestation: Total time spent providing and/or coordinating discharge services: 27 Exam Const: General: comfortable and no acute distress Other: , female, nontoxic appearance HENMT: Face/Nose/Sinus: Normal nares present Mouth: Yes moist mucous membranes Eyes: General: appearance normal, both eyes and all related structures Sclera: sclerae normal Pupils: Equal, round and reactive pupils present EOM: EOMs intact bilaterally Resp: Effort & Inspection: normal respiratory effort Auscultation: clear to auscultation bilaterally Cardio: Rate: regular rate Rhythm: regular rhythm Other: S1-S2 present without murmur, rub, ectopy GI: Other: Abdomen soft, nondistended, nontender. Normoactive bowel sounds in all quadrants. Skin: General skin exam: normal color, no rashes or lesions noted and wounds noted Wounds: wounds noted Other: Axilla dressing clean, dry and intact. Neuro: Cranial nerves: Yes Equal, round and reactive pupils present Speech: normal speech Motor exam (neuro): 5/5 motor strength present throughout Sensory Exam: normal sensation Other: A&O x4 Extrem: General: normal to inspection Other: DP pulses 2+ bilaterally. L hip tender, limited ROM given. Surgical site incision site clean, dry and intact Psych: Mental Status: mental status grossly normal Affect: normal affect Other: Good insight and judgment, very pleasant DS: Data Data Completed and Pending Labs on day of discharge: Labs from last 24 hours 08/27/25 08/26/25 06:32 10:54 WBC 4.8 RBC 4.24 Hgb 12.6 Hct 38.8 MCV 91.5 MCH 29.7 MCHC 32.5 RDW 12.1 Plt Count 238 MPV 9.9 Immature Gran % (Auto) 0.4 Neut % (Auto) 46.5 Lymph % (Auto) 27.7 [place] % (Auto) 14.9 H Eos % (Auto) 9.9 H Baso % (Auto) 0.6 Lymph # (Auto) 1.32 [place] # (Auto) 0.7 H Eos # (Auto) 0.5 H Baso # (Auto) 0.0 Abs Immat Gran (auto) 0.02 Absolute Neuts (auto) 2.2 Absolute Nucleated RBC 0.000 Nucleated RBC % 0.0 Sodium 136 L Potassium 4.1 Chloride 107 Carbon Dioxide 26 Anion Gap 3 L BUN 12 Creatinine 0.59 L Estim Creat Clear Calc 79 Estimated GFR > 60 Glucose 106 Calcium 8.5 Total Bilirubin 0.4 AST 29 ALT 14 Alkaline Phosphatase 63 Total Protein 6.1 L Albumin 3.3 L Vancomycin Trough < 5.0 L Discharge Plan Discharge Attending physician on discharge: Don Momin Consulting providers: Osito Santiago; Jas Lira; Vini Carpio; Allen Vann Discharging Clinician: Jas Lira Anticipated Discharge Date/Time: 08/27/25 11:03 Patient Disposition: SNF Activity: may shower, no driving and follow weight bearing status Diet: as tolerated Wound Care Instructions: follow printed instructions Discharge Instructions: Postoperative Hip Fracture Instructions Dr. Vini Carpio [phone] * Dressing to be changed daily with an island dressing beginning on post op day #2. May stop dressing changes at post op day #14. Alejandro to be removed on post op day #14 * Weight bearing: Partial Weight Bearing (50%) . * You may shower with your dressing but do not submerge in a bath tub. * Do not drive or operate machinery until you are released by your surgeon. * Do not walk without a walker for any reason until you are released by your surgeon. * DVT prophylaxis x28 days post op. * Continue to apply ice to the hip intermittently for additional pain relief. Protect your skin with a towel or pillow case. * Continue to follow strict hip fracture precautions. * Please contact our office with any questions/concerns regarding your hip at [phone]. * Follow up appointment instructions indicated below. Left axilla abscess: * Cover area with gauze dressing and secure with tape until there is no longer any drainage from the wound. If you notice any increased redness, pain, swelling, or drainage from the wound, call general surgery office at . Patient Language: Belarusian Stand Alone Forms: General Discharge Information Follow-up/Referrals: Vini Carpio MD [Physician, Orthopedics] - 10/10/25 1:00 pm Discharge Medications: New oxycodone-acetaminophen 5-325 mg Tablet 1 tablet PO Q4H PRN (Reason: pain) Qty: 30 0RF enoxaparin [Lovenox] 40 mg/0.4 mL Syringe 40 mg subcut DAILY 28 Days Qty: 11.2 0RF amoxicillin-pot clavulanate 875-125 mg tablet 1 tablet PO Q12H Qty: 10 0RF Date of admission: 08/25/25 08:06 Primary Care Provider: PHYSICIAN,CONDUIT HELPER Admitting Provider: Don Momin Attending physician on admission: Don Momin Condition: Stable Quality VTE Prophylaxis VTE prophylaxis: mechanical ordered
--- NOTE | 2025-08-27 12:03 | P.PNGS_ITS ---
Progress Note: A&P Assessment and Plan (1) Abscess of axilla, left: Code(s): L02.412 - Cutaneous abscess of left axilla Status: Acute Assessment and Plan: * Improving s/p I&D simple left axillary abscess. Wound has almost fully healed after packing removed yesterday. No pain. Minimal redness. No purulence or fluctuance. * Wound cultures isolating gram negative bacilli and staph aureus. Will discharge home on course of oral antibiotics. Wound care instructions in discharge. * Surgically stable for discharge. Plan I have discussed the patient's case, recommendations, and treatment plan with Dr. Vann. Subjective Subjective Date/Time Seen: 08/27/25 12:03 Patient reports: no new complaints, feels better and afebrile Interval history: Patient doing well today. No new complaints. No adverse events overnight. WBC remains stable. Exam Narrative: Left axillary wound healing appropriately. Almost entirely closed. Minimal serous drainage. No purulence. Minimal surrounding erythema. Induration surrounding the wound. Objective Data Vital Signs Vital Signs: Vital Signs - 24 hr 08/26/25 15:41 08/26/25 20:00 08/26/25 22:00 Temperature 98.2 F 98.2 F Pulse Rate 68 87 Respiratory Rate 16 18 Blood Pressure 148/63 H 134/80 Pulse Oximetry 96 97 Oxygen Delivery Room Air 08/27/25 01:21 08/27/25 05:43 08/27/25 08:00 Temperature 97.3 F L 97.0 F L Pulse Rate 78 74 Respiratory Rate 18 16 Blood Pressure 122/79 116/71 Pulse Oximetry 97 94 Oxygen Delivery Room Air Intake/Output Intake/Output: Intake & Output 08/24/25 08/25/25 08/26/25 08/27/25 23:59 23:59 23:59 23:59 Intake Total 2207.1 760 340 Output Total 1750 900 600 Balance 457.1 140 260 Meds/Results Medications: Active Medications Generic Name Dose Route Start Last Admin Trade Name Freq PRN Reason Stop Dose Admin Acetaminophen 500 mg 08/25/25 17:56 Acetaminophen 500 Mg Tablet PO Q6H PRN Pain Rated 1-3 Celecoxib 200 mg 08/26/25 08:00 08/27/25 08:13 Celecoxib 200 Mg Capsule PO 200 mg DAILY@0800 ALYCE Administration Diazepam 5 mg 08/25/25 17:56 08/26/25 20:20 Diazepam (*Crx) 5 Mg Tablet PO 5 mg Q8H PRN Administration Muscle Spasm Docusate Sodium 100 mg 08/24/25 20:33 Docusate Sodium 100 Mg Capsule PO Q12H PRN Constipation Enoxaparin Sodium 40 mg 08/26/25 09:00 08/27/25 08:13 Enoxaparin 40 Mg/0.4 Ml Syringe SUB-Q 40 mg DAILY ALYCE Administration Famotidine 20 mg 08/25/25 21:00 08/27/25 08:13 Famotidine 20 Mg Tablet PO 20 mg Q12HR ALYCE Administration Hydromorphone HCl 1 mg 08/25/25 17:56 Hydromorphone Hcl Inj (*Crx) 1 Mg/Ml Syr IV PUSH Q2H PRN Breakthrough Pain Rated 7-10 or NPO Hydromorphone HCl 0.5 mg 08/25/25 17:56 Hydromorphone Hcl Inj (*Crx) 1 Mg/Ml Syr IV PUSH Q2H PRN Breakthrough Pain Rated 4-6 or NPO Hydroxyzine Pamoate 50 mg 08/25/25 17:56 Hydroxyzine Pamoate 25 Mg Capsule PO Q4H PRN Itching Ibuprofen 800 mg in 200 mls @ 400 mls/hr 08/25/25 17:56 Caldolor 800 Mg/200 Ml IVPB Q6H PRN Breakthrough Pain Rated 1-3 or NPO Naloxone HCl 0.1 mg 08/25/25 17:56 Naloxone Hcl 0.4 Mg/Ml Vial IV PUSH Q2M PRN Opiate Reversal Ondansetron HCl 4 mg 08/25/25 17:56 Ondansetron Inj 4 Mg/2 Ml Vial IV PUSH Q4H PRN Nausea And Vomiting Oxycodone/Acetaminophen 1 tablet 08/25/25 17:56 08/27/25 08:12 Oxycodone/Acetaminophen (*Crx) 5-325 Mg Tablet PO 1 tablet Q4H PRN Administration Pain Rated 4-6 Oxycodone/Acetaminophen 1 tab 08/25/25 17:56 Oxycodone/Acetaminophen (*Crx) 10-325 Mg Tablet PO Q6H PRN Pain Rated 7-10 Polyethylene Glycol 17 gm 08/24/25 20:33 Polyethylene Glycol 3350 17 Gm Powd.Pack PO QAM PRN Constipation Polyethylene Glycol 17 gm 08/26/25 09:00 08/27/25 08:12 Polyethylene Glycol 3350 17 Gm Powd.Pack PO 17 gm QAM ALYCE Administration Senna/Docusate Sodium 2 tab 08/25/25 17:56 08/27/25 08:13 Senna/Docusate Sodium Tablet PO 2 tab BID ALYCE Administration Radiology Results: ITS Impressions Hip/Pelvis X-Ray 08/24/25 16:54 Impression: Probable left femoral neck fracture. CT recommended Hip CT 08/24/25 18:08 IMPRESSION: Nondisplaced left femoral neck fracture Labs Labs: Laboratory Results - last 24 hr 08/27/25 06:32 WBC 4.8 RBC 4.24 Hgb 12.6 Hct 38.8 MCV 91.5 MCH 29.7 MCHC 32.5 RDW 12.1 Plt Count 238 MPV 9.9 Immature Gran % (Auto) 0.4 Neut % (Auto) 46.5 Lymph % (Auto) 27.7 [place] % (Auto) 14.9 H Eos % (Auto) 9.9 H Baso % (Auto) 0.6 Lymph # (Auto) 1.32 [place] # (Auto) 0.7 H Eos # (Auto) 0.5 H Baso # (Auto) 0.0 Abs Immat Gran (auto) 0.02 Absolute Neuts (auto) 2.2 Absolute Nucleated RBC 0.000 Nucleated RBC % 0.0 Sodium 136 L Potassium 4.1 Chloride 107 Carbon Dioxide 26 Anion Gap 3 L BUN 12 Creatinine 0.59 L Estim Creat Clear Calc 79 Estimated GFR > 60 Glucose 106 Calcium 8.5 Total Bilirubin 0.4 AST 29 ALT 14 Alkaline Phosphatase 63 Total Protein 6.1 L Albumin 3.3 L
== END 2025-08-27 14:30 | DRG 308 ==
LOC: ANHED 19:14 → ANH3MED 19:54 → ANH3MEDSUR 08-27 11:03 → ANH3MED 08-28 11:13 → ANH3MEDSUR 08-28 11:13
PROVIDERS: Orthopaedic Surgery; Student in an Organized Health Care Education/Training Program; Surgery; Admitting Provider Internal Medicine; Emergency Provider Emergency Medicine; Visit Provider Physician Assistant
PROC: 0QH734Z Insertion of Internal Fixation Device into Left Upper Femur, Percutaneous Approach (ICD-10-PCS; principal; 2025-08-25 12:00)
PROC: 0X950ZX Drainage of Left Axilla, Open Approach, Diagnostic (ICD-10-PCS; 2025-08-25 12:00)
DX: S72.002A Fracture of unspecified part of neck of left femur, initial encounter for closed fracture (principal); L02.412 Cutaneous abscess of left axilla; F41.9 Anxiety disorder, unspecified; F32.A Depression, unspecified; W01.0XXA Fall on same level from slipping, tripping and stumbling without subsequent striking against object, initial encounter; Z80.0 Family history of malignant neoplasm of digestive organs
CPT/HCPCS: 36415; 73502; 73700; 80048; 80053; 80202; 80307; 81001; 82565; 85025; 85610; 85730; 87070; 87075; 87186; 87205; 96374; 97110; 97162; 97166; 97530; 97535; 99199; 99285; J0690; A9270; C1713; G0378; G0379; J1650; J2003; J2270; J2405; J2704; J3010; J3373; J7030; J7120